=== PATIENT | female | born 2000 | race Caucasian/White ===

== ENCOUNTER 2021-04-15 10:34 | Outpatient (CLI) | payer OTHER, SELFPAY ==
[2021-04-15] VITALS (8 sets, daily range): BP systolic 101–127; BP diastolic 45–61; PULSE 68–83; TEMP 36.9
--- NOTE | 2021-04-15 11:00 | OBADM ---
This patient, Betina Langford, admitted to the OB room OB Post 115 for observation. Patient/family oriented to hospital policies and general routines including ID bracelet, bed and alarms, visiting hours, pain management, procedures, bathroom and other care routines, personal items, smoking policy, room service/diet, and visiting hours. Patient/Family are encouraged to report perceived risks to care and to ask questions if they do not understand what they are told or what they should do.
[2021-04-15 13:03] LABS: Alanine Aminotransferase 49 U/L (4-35); Albumin Level 4.6 g/dL (3.5-5.1); Alkaline Phosphatase 83 U/L (38-126); Anion Gap 11 mmol/L (8-16); Aspartate Amino Transferase 38 U/L (14-36); Bilirubin,Total 1.2 mg/dL (0.2-1.3); Blood Urea Nitrogen 10 mg/dL (7-17); Calcium 9.4 mg/dL (8.4-10.2); Carbon Dioxide 20 mmol/L (22-30); Chloride 102 mmol/L (98-107); Estimated Glomerular Filt Rate > 60; Glucose 92 mg/dL (65-110); Potassium 3.6 mmol/L (3.4-5.0); Sodium 133 mmol/L (137-145)
[2021-04-15] MEDS: THIAMINE HCL INJ 100 MG, FOLIC ACID INJ 1 MG, MULTIVITAMINS-12 INJ VIAL 1 5 ML, MULTIVI... 150 MG IV CONT (13:19)
[2021-04-15] MEDS: PROMETHAZINE HCL 25 MG/ML AMPUL 12.5 MG IV PUSH (13:20)
--- NOTE | 2021-04-15 17:00 | PC.NURSE ---
Pt has tolerated popcicle and jello without any increase in nausea again.
--- NOTE | 2021-04-15 18:05 | PC.NURSE ---
Dr. Bang returned page and informed IV bag with multivitamins has infused and pt has tolerated popcicle, jello, and ice chips. Discharge orders received.
== END 2021-04-15 18:42 | disposition home or self-care (01) ==
LOC: ANHOBOP 10:42 → ANHOBPP 10:46
PROVIDERS: Visit Provider Student in an Organized Health Care Education/Training Program
DX: O21.9 Vomiting of pregnancy, unspecified (principal); Z3A.00 Weeks of gestation of pregnancy not specified
CPT/HCPCS: 36415; 80053; 99199; J2550; J3411; J3475; J7121

== ENCOUNTER 2021-04-20 17:55 | Observation (INO) | payer OTHER, SELFPAY ==
--- NOTE | ~2021-04-20 | XR_ITS ---
EXAMINATION: XR chest 1V portable DATE: 04/22/2021 08:49 INDICATION: COVID and . TECHNIQUE: frontal view of the chest was obtained. COMPARISON: Chest radiograph dated 04/20/2021 FINDINGS: The lungs remain clear with no focal airspace opacities, pulmonary edema, pleural effusion or pneumot horax. The cardiomediastinal silhouette is normal. Visualized bones and soft tissues are unremarkable . IMPRESSION: 1. Normal chest radiograph. Reviewed, dictated and finalized at location A. NSED PSYCHOLOGIST MANAGER IMPRESSION: 1. Normal chest radiograph.
--- NOTE | ~2021-04-20 | XR_ITS ---
XR chest 1V portable DATE: 04/20/2021 23:15 INDICATION: Chest pain, cough, fever. Covid exposure 2 days ago. TECHNIQUE: Portable AP chest on 04/20/2021 at 2310 hours COMPARISON: None FINDINGS: Normal heart size. No hilar or mediastinal enlargement. No pulmonary infiltrate or consolidation, pleural effusion or pulmonary vascular congestion or pneumo thorax. Included skeletal structures are unremarkable. IMPRESSION: No active cardiopulmonary disease Reviewed, dictated and finalized at location A. TANCE ABUSE SERVICES DIRECTOR
[2021-04-20 18:01] VITALS: BP 133/75; PULSE 128; RESP 20; TEMP 37.9; O2SAT 98
[2021-04-20 21:12] VITALS: BP 130/62; PULSE 78; RESP 24; TEMP 37.2; O2SAT 100
[2021-04-20 23:13] VITALS: RESP 18
[2021-04-20 23:18] VITALS: BP 98/62; PULSE 121; RESP 18; O2SAT 97
--- NOTE | 2021-04-20 23:21 | ED.FEVER ---
HPI - Fever General Chief Complaint: Fever Stated Complaint: Fever, Covid Exposure,10 weeks Time Seen by Provider: 04/20/21 22:43 Source: patient Mode of arrival: ambulatory Limitations: no limitations History of Present Illness HPI Narrative: Patient presents for evaluation of respiratory symptoms. She indicates she was informed today that her fiance's cousin, with whom she spent time with on [place], tested positive for COVID. Patient indicates she has had fever, chills, productive cough of yellow sputum with associated shortness of breath, chest heaviness, nausea, vomiting, abdominal cramping since yesterday. She feels dehydrated as she has not been able to keep anything down. She states she is currently , 10 weeks gestation. She has already had a confirmed IUP per U/S during this . . She denies any vaginal bleeding or discharge. She does not smoke. She has not received her COVID vaccinations. She is still taking adderall during her , down to 1 dose daily from 3 times daily[address] O[address]YN [address] Dr Bang. Related Data Home Medications Medication Instructions Recorded Confirmed PNV cmb#95-ferrous fumarate-FA 1 tablet PO DAILY 04/15/21 04/15/21 [] dextroamphetamine-amphetamine 10 mg PO TID PRN 04/15/21 04/15/21 ondansetron HCl 4 mg PO Q6-12H PRN 04/15/21 04/15/21 Allergies Allergy/AdvReac Type Severity Reaction Status Date / Time No Known Allergies Allergy Verified 04/15/21 15:38 Review of Systems Review of Systems: CONSTITUTIONAL: Reports fever and chills EYES: Denies visual changes, redness, or discharge. ENT: Reports sore throat. Denies otalgia and rhinorrhea CARDIOVASCULAR: Reports chest heaviness. Denies palpitations and edema RESPIRATORY: Reports productive cough of yellow sputum with associated SOB GASTROINTESTINAL: Reports abdominal cramping, nausea and vomiting GENITOURINARY: Denies dysuria or hematuria. SKIN: Denies rash or itching. MUSCULOSKELETAL: Reports generalized body aches NEUROLOGIC: Denies headache, numbness, dizziness, or weakness. PSYCHIATRIC: Denies anxiety or depression. [facility] Past Medical History Medical History (Updated 04/21/21 @ 02:15 by Gregorio Saul, [facility], ) No pertinent past medical history Surgical History Surgical History History of ankle surgery History of History of tonsillectomy Family History Family History (Updated 04/21/21 @ 02:15 by RENEE MckeonP, ) Father Heart disease Social History Social History (Updated 04/20/21 @ 23:27 by KRUNAL Mckeon, ) Smoking status: Never smoker Alcohol intake: never Substance use type: marijuana Other substance usage details: edibles Gender identity (if verbalized by the patient): Female Sexual Orientation (if Verbalized by the Patient): Straight or Heterosexual Spiritual care concerns: No Exam Narrative: GENERAL: Well-appearing, well-nourished, and in no acute distress. HEAD: Normocephalic, atraumatic. EYES: PERRLA and EOMI. ENT: Nares clear, no rhinorrhea or epistaxis. Mucous membranes moist. Oropharynx without tonsillar hypertrophy exudate or other lesions. Bilateral TMs pearly guerrier nonbulging NECK: Supple. No adenopathy or masses. No carotid bruits or JVD CHEST: Cough present on exam. Clear to auscultation. No respiratory distress. No wheezes rales or rhonchi HEART: Rate 125. No murmur heard. Normal peripheral pulses. ABDOMEN: Soft, nontender, nondistended, normal active bowel sounds. EXTREMITIES: Normal range of motion. No edema. SKIN: Warm, dry, no rash. NEURO: No focal deficits. Alert and oriented x3. PSYCH: Normal mood and affect. Course Course Emergency Course: This is a 21-year-old female who presented with complaints of fever and symptoms concerning for Covid after recent Covid exposures. She is initially tachycardic. EKG showed sinus tachycardia.
[2021-04-20 23:31] LABS: Basophils Percent Auto 0.4 % (0.2-1.2); Eosinophils Percent Auto 0.3 % (0-4.4); Hematocrit 35.2 % (37.0-47.0); Hemoglobin 12.2 g/dL (12.0-15.0); Immature Granulocyte Absolute 0.02 K/mm3 (0.00-0.031); Immature Granulocyte Percent A 0.3 % (0-0.5); Lymphocytes Absolute Auto 0.38 K/mm3 (0.9-3.2); Lymphocytes Percent Auto 5.3 % (18.3-44.2); Mean Corpuscular HGB Conc 34.7 g/dl (32-36); Mean Corpuscular Hemoglobin 28.9 pg (26-34); Mean Corpuscular Volume 83.4 fl (80-100); Mean Platelet Volume 12.1 fl (7.4-10.4); Monocytes Absolute Auto 0.7 K/mm3 (0.1-0.6); Monocytes Percent Auto 9.4 % (2.6-8.5); Neutrophils Percent Auto 84.3 % (45.5-73.1); Platelet Count Result 184 k/mm3 (150-375); Red Blood Count 4.22 M/mm3 (4.2-5.4); Red Cell Distribution Width 13.5 % (11.5-14.5); White Blood Count 7.1 K/mm3 (4.5-10.0)
[2021-04-20] MEDS: METOCLOPRAMIDE HCL INJ 10 MG/2 ML VIAL IV PUSH (23:32)
[2021-04-20] MEDS: LACTATED RINGERS 1,000 ML 999 ML IV CONT (23:32)
[2021-04-20] MEDS: diphenhydrAMINE HCl INJ 50 MG/ML VIAL 25 MG IV PUSH (23:33)
[2021-04-20 23:35] LABS: Add Urine Microscopic? YES; Appearance Urine Cloudy (Clear); Bilirubin Urine Negative (Negative); Color Urine Amber (Yellow); Glucose Urine UA Negative (Negative); Ketones Urine 2+ mg/dL (Negative); Leukocyte Esterase Ur Trace LEU/UL (Negative); Mucus Urine Heavy /lpf; Nitrate Urine Negative (Negative); Protein Urine 1+ mg/dL (Negative); Squamous Epithelial Cell Urine Many /hpf (Few); WBC Urine 16-20 /hpf
[2021-04-20 23:38] LABS: Blood Urine Negative (Negative); Specific Grav Ur 1.031 (1.001-1.035)
[2021-04-20 23:45] LABS: Alanine Aminotransferase 50 U/L (4-35); Albumin Level 4.3 g/dL (3.5-5.1); Alkaline Phosphatase 76 U/L (38-126); Anion Gap 9 mmol/L (8-16); Aspartate Amino Transferase 40 U/L (14-36); Bilirubin,Total 0.3 mg/dL (0.2-1.3); Blood Urea Nitrogen 7 mg/dL (7-17); Calcium 9.2 mg/dL (8.4-10.2); Carbon Dioxide 20 mmol/L (22-30); Chloride 104 mmol/L (98-107); Estimated CRCL calculation 187 ml/min; Estimated Glomerular Filt Rate > 60; Glucose 96 mg/dL (65-110); Lactic Acid Reflex 0.8 mmol/L (0.7-2.1); Potassium 3.5 mmol/L (3.4-5.0); Sodium 133 mmol/L (137-145)
[2021-04-20 23:56] LABS: Troponin I < 0.012 ng/mL (0.000-0.034)
[2021-04-21] VITALS (15 sets, daily range): BP systolic 107–137; BP diastolic 46–65; PULSE 83–118; RESP 16–18; TEMP 36.3–38.4; O2SAT 96–99; BMI 45.9
--- NOTE | 2021-04-21 00:25 | ECG_ITS ---
Measurements Intervals [place] Rate: 104 P: 37 CA: 157 QRS: 37 QRSD: 90 T: 17 QT: 329 QTc: 435 Interpretive Statements SINUS TACHYCARDIA MINIMAL Q WAVES- INFERIOR LEADS NONSPECIFIC T-WAVE ABNORMALITY- INFERIOR LEADS BASELINE ARTIFACT- I, III, AVL BORDERLINE ECG Electronically Signed On 04-21-2021 7:39:35 ASSOCIATE SOFTWARE ENGINEER by Quincy Blake D.O.
[2021-04-21] MEDS: LACTATED RINGERS 1,000 ML 999 ML IV CONT ×2 (00:28→01:15)
[2021-04-21] MEDS: ACETAMINOPHEN 325 MG TABLET 650 MG PO ×3 (02:20→12:33)
[2021-04-21 02:49] LABS: Troponin I < 0.012 ng/mL (0.000-0.034)
[2021-04-21 03:40] LABS: EDCOVIDSCREEN Positive (Negative)
[2021-04-21] MEDS: LACTATED RINGERS 1,000 ML 125 ML IV CONT ×3 (03:44→20:22)
--- NOTE | 2021-04-21 04:04 | PC.NURSE ---
Pt arrived from the ED per wheelchair to room 320 B with a Dx of Fever, covid exposure and 10 weeks . Pt in no acute distress. Encouraged to inform nurse if need assist with anything and plan of care discussed, verbalize understanding. See admission flowsheet for further assessment.
--- NOTE | 2021-04-21 08:55 | PM.IMHP ---
H&P: HPI History of Present Illness Date/Time: 04/21/21 08:55 Betina was admitted late last night due to respiratory symptoms, COVID positive viral infection with Tachycardia, while being 10 weeks gestation . She had fever, chills, productive cough of yellow sputum with associated shortness of breath, chest heaviness, nausea, vomiting, abdominal cramping at admission. She was dehydrated and not keeping anything down. She has already had a confirmed IUP per U/S during this . . She denies any vaginal or complications this far. She does not smoke, but did admit to smoking marijuana prior to due to GI upset, and switching to chews post - Dr. Bang informed. She has not received her COVID vaccinations. She is still taking Adderall during this , but is down to 1 dose daily from 3 times daily - currently held. Today, she continues to have tachycardic episodes with HR 100s, likely due to dehydration and COVID viral infection. Her Mag level was 1.6, treated with 2gm Mag IV, will recheck in the morning. Phos level WNL. Her cough seems to be more productive and often, than when she was admitted. Ordered CXR 2 view for morning, ordered Incentive spirometer use, sputum culture collected, scheduled Albuterol inhaler, and instructed her to sleep on her stomach or sides. Most of her s/s at home were GI related, N/V and unable to keep food down. Continue the Reglan, Zofran, and pepcid. She was not able to eat breakfast today due to feeling nauseated, but she was able to eat lunch today and keep it down. That is the only successful meal at this time. Her LFTs continued to climb, hoping that with the further IVFs at 125 ml/hr for rehydration, that her LFTs will be improved tomorrow. Will keep her overnight to further rehydrate with IVFs, monitor that she can tolerate meals and fluids by mouth well, monitor that her O2 requirements, monitor her elevated LFTs for improvement, and recheck a CXR in the morning. Spoke with OB-Fruit Grading Supervisor Dr. Bang, CXR in the morning is fine, as well as Albuterol. At this time, she is not requiring supplemental O2, but if that changes overnight or tomorrow morning, she should be started on high-dose prednisone and IV Remdesivir in efforts to fight off respiratory failure. Appreciate OB-Fruit Grading Supervisor Dr. Bang's recommendations today. Chief Complaint: Cough, Chest heaviness, Yellow Sputum, N/V and Abdominal Cramping Review of Systems Review of Systems: All systems reviewed & are unremarkable except as noted in HPI and below Constitutional: Constitutional: Reports as per HPI, Reports chills (noted at admission/ improved/resolved at this time), Denies excessive sweating, Denies headache(s), Denies increased appetite, Reports poor appetite, Denies snoring and Denies weight gain Eyes: Eyes: Reports as per HPI, Denies exophthalmos, Denies diplopia, Denies floaters and Denies loss of peripheral vision ENT: Reports as per HPI, Denies facial pain, Denies headache(s), Reports nasal congestion, Reports nasal discharge, Denies odynophagia, Denies tinnitus and Reports sinus pressure Cardiovascular: Cardiovascular: Denies chest pain, Reports rapid heart rate, Denies pedal edema, Denies leg edema, Denies lightheadedness and Denies dyspnea Respiratory: Respiratory: Reports as per HPI, Reports cough (productive at times.), Denies hemoptysis, Denies excessive phlegm production, Denies pain on inspiration, Denies pain with cough, Denies snoring and Denies wheezing Gastrointestinal: Gastrointestinal: Denies abdominal pain, Denies belching, Denies melena, Denies bloating, Denies hematochezia, Denies constipation, Denies GI cramping, Denies diarrhea, Reports nausea, Denies odynophagia, Denies vomiting and Denies hematemesis Genitourinary: Genitourinary: Reports as per HPI, Denies hematuria, Denies dysuria, Denies pelvic pain, Denies flank pain, Denies vaginal discharge and Reports other (darkened urine/tea colored urine) M
[2021-04-21] MEDS: METOCLOPRAMIDE HCL INJ 10 MG/2 ML VIAL IV PUSH ×2 (09:02→17:13)
[2021-04-21 09:20] LABS: CRP 2.6 mg/dL (<1.0); Lactate Dehydrogenase 334 U/L (313-618); Magnesium 1.6 mg/dL (1.6-2.3); Phosphorus 3.8 mg/dL (2.5-4.5)
[2021-04-21 09:36] LABS: SPREG INTERNAL CONTROL Positive; Serum Qual hCG Positive
--- NOTE | 2021-04-21 16:54 | WPDCN ---
Assessment and Plan Assessment and plan (1) Supervision of high risk , unspecified, unspecified trimester: Code(s): O09.90 - Supervision of high risk , unspecified, unspecified trimester Status: Acute (2) COVID-19 affecting in first trimester: Code(s): O98.511 - Other viral diseases complicating , first trimester; U07.1 - COVID-19 Status: Acute Assessment and Plan: pt presents with URI symptoms after COVID exposure pt tested positive for COVID in the ED pt c/o SOB, productive cough, vomiting, fever CRP and liver enzymes elevated chest X-ray was benign management of COVID-19 per hospitalist team, appreciate recommendations discussed COVID-19 in including increased risk of preeclampsia, VTE, stillbirth, maternal morbidity recommend daily 81mg aspirin starting at 13w GA No obstetric complaints currently HPI Data of Consult Date/Time: 04/21/21 16:54 Requesting Physician: Jennie aMyo NP Primary Care Provider: ASSOCIATE DIRECTOR QA PHYSICIAN Consult Narrative Narrative: Betina Langford is a 20 year old female at approximately 10w gestation who presents with fever, chills, SOB, productive cough after exposure to a COVID positive relative over [place]. Pt has not been vaccinated against COVID-19. Pt was found to have a positive COVID test in the ED. She is resting and breathing comfortably on room air. She still reports some mild SOB and cough. She denies any vaginal bleeding, leakage of fluid, pelvic pain. She did report some abdominal cramping after several bouts of emesis. Those symptoms have since resolved. Pt has no other obstetric complaints. Review of Systems Review of Systems: All systems reviewed & are unremarkable except as noted in HPI and below PMFSH Past Medical History Medical History (Updated 04/21/21 @ 17:00 by Temo Bang MD) No pertinent past medical history Surgical History Surgical History History of ankle surgery History of History of tonsillectomy Family History Family History Father Heart disease Social History Social History (Updated 04/20/21 @ 23:27 by KRUNAL Mckeon, ) Smoking status: Never smoker Second hand tobacco smoke exposure: No Alcohol intake: never Substance use type: other Other substance usage details: edibles Gender identity (if verbalized by the patient): Female Sexual Orientation (if Verbalized by the Patient): Straight or Heterosexual Spiritual care concerns: No Meds Home Medications and Allergies Home Medications Medication Instructions Recorded Confirmed Type PNV cmb#95-ferrous fumarate-FA 1 tablet PO DAILY 04/15/21 04/15/21 History [] dextroamphetamine-amphetamine 10 mg PO TID PRN 04/15/21 04/15/21 History ondansetron HCl 4 mg PO Q6-12H PRN 04/15/21 04/15/21 History Allergies Allergy/AdvReac Type Severity Reaction Status Date / Time No Known Allergies Allergy Verified 04/15/21 15:38 Vital Signs Vital Signs - 24 hr 04/20/21 18:01 04/20/21 21:12 04/20/21 23:13 Temperature 37.9 C H 37.2 C Pulse Rate 128 H 78 Respiratory Rate 20 24 H 18 Blood Pressure 133/75 130/62 Pulse Oximetry 98 100 04/20/21 23:18 04/21/21 00:28 04/21/21 01:16 Temperature Pulse Rate 121 H 104 H 101 H Respiratory Rate 18 18 16 Blood Pressure 98/62 L 108/58 L 131/61 Pulse Oximetry 97 96 99 04/21/21 02:22 04/21/21 03:19 04/21/21 03:35 Temperature 36.3 C L Pulse Rate 118 H 106 H 109 H Respiratory Rate 18 18 18 Blood Pressure 118/65 116/46 L 128/55 L Pulse Oximetry 98 96 98 04/21/21 04:00 04/21/21 05:36 04/21/21 08:00 Temperature 38.4 C H Pulse Rate 93 95 105 H Respiratory Rate 16 Blood Pressure 107/59 L Pulse Oximetry 99 04/21/21 09:02 04/21/21 10:00 04/21/21 12:00 Temperature 38.4 C H 37.
[2021-04-21] MEDS: MULTIVIT/MIN/PREN/FOL AC/IRON TABLET 1 TAB PO (19:46)
[2021-04-21 20:09] LABS: SARS-CoV-2 RNA PCR Positive (Negative)
[2021-04-21] MEDS: FAMOTIDINE 20 MG TABLET PO (20:15)
[2021-04-21] MEDS: MAGNESIUM SULF 2 GM/WATER 50ML 2 GM/50 ML BAG IVPB (20:30)
[2021-04-22] VITALS: BP 111/48; PULSE 81; RESP 16; TEMP 37.6; O2SAT 98
[2021-04-22 00:46] VITALS: TEMP 37.6
[2021-04-22] MEDS: ACETAMINOPHEN 325 MG TABLET 650 MG PO (00:46)
[2021-04-22 01:45] VITALS: TEMP 36.5
[2021-04-22] MEDS: ALBUTEROL SULFATE (*SP) INHALER 2 PUFF INHALATION (02:09)
[2021-04-22 04:00] VITALS: BP 100/40; PULSE 73; RESP 16; TEMP 36.3; O2SAT 99
[2021-04-22 06:00] VITALS: BP 100/40; PULSE 73; RESP 16; TEMP 36.3; O2SAT 99
[2021-04-22] MEDS: LACTATED RINGERS 1,000 ML 125 ML IV CONT (07:03)
[2021-04-22 07:33] LABS: Basophils Percent Auto 0.5 % (0.2-1.2); Eosinophils Percent Auto 1.1 % (0-4.4); Hematocrit 33.1 % (37.0-47.0); Hemoglobin 11.1 g/dL (12.0-15.0); Immature Granulocyte Absolute 0.02 K/mm3 (0.00-0.031); Immature Granulocyte Percent A 0.5 % (0-0.5); Lymphocytes Absolute Auto 0.89 K/mm3 (0.9-3.2); Lymphocytes Percent Auto 23.7 % (18.3-44.2); Mean Corpuscular HGB Conc 33.5 g/dl (32-36); Mean Corpuscular Hemoglobin 28.2 pg (26-34); Mean Platelet Volume 12.3 fl (7.4-10.4); Monocytes Absolute Auto 0.6 K/mm3 (0.1-0.6); Monocytes Percent Auto 14.6 % (2.6-8.5); Neutrophils Absolute Auto 2.2 K/mm3 (1.3-6.7); Neutrophils Percent Auto 59.6 % (45.5-73.1); Platelet Count Result 163 k/mm3 (150-375); Red Blood Count 3.94 M/mm3 (4.2-5.4); Red Cell Distribution Width 13.6 % (11.5-14.5); White Blood Count 3.8 K/mm3 (4.5-10.0)
[2021-04-22 07:37] LABS: Alanine Aminotransferase 51 U/L (4-35); Albumin Level 3.5 g/dL (3.5-5.1); Alkaline Phosphatase 65 U/L (38-126); Anion Gap 4 mmol/L (8-16); Aspartate Amino Transferase 38 U/L (14-36); Bilirubin,Total 0.2 mg/dL (0.2-1.3); Blood Urea Nitrogen 3 mg/dL (7-17); Calcium 8.4 mg/dL (8.4-10.2); Carbon Dioxide 20 mmol/L (22-30); Chloride 108 mmol/L (98-107); Estimated CRCL calculation 230 ml/min; Estimated Glomerular Filt Rate > 60; Glucose 86 mg/dL (65-110); Potassium 3.2 mmol/L (3.4-5.0); Sodium 132 mmol/L (137-145)
[2021-04-22 08:00] VITALS: BP 127/49; PULSE 84; RESP 16; TEMP 36.2; O2SAT 98
[2021-04-22 08:06] LABS: Magnesium 1.8 mg/dL (1.6-2.3)
[2021-04-22 08:17] LABS: Hemoglobin A1C 5.1 % (<5.7)
[2021-04-22] MEDS: POTASSIUM CHLORIDE 20 MEQ TABLET 40 MEQ PO (10:02)
[2021-04-22] MEDS: FAMOTIDINE 20 MG TABLET PO (10:02)
[2021-04-22] MEDS: MULTIVIT/MIN/PREN/FOL AC/IRON TABLET 1 TAB PO (10:02)
--- NOTE | 2021-04-22 10:12 | PM.DS ---
DS: Admitting Diagnosis Discharge Date 04/22/21 Admitting Diagnosis Fever, chills and cough DS: Discharge Diagnosis Discharge Diagnosis (1) COVID-19 affecting in first trimester: Code(s): O98.511 - Other viral diseases complicating , first trimester; U07.1 - COVID-19 Status: Acute (2) Tachycardia: Code(s): R00.0 - Tachycardia, unspecified Status: Acute (3) Elevated liver enzymes: Code(s): R74.8 - Abnormal levels of other serum enzymes Status: Acute (4) Obesity, Class III, BMI 40-49.9 (morbid obesity): Code(s): E66.01 - Morbid (severe) obesity due to excess calories Status: Acute (5) Nausea and vomiting in prior to 22 weeks gestation: Code(s): O21.9 - Vomiting of , unspecified Status: Acute (6) Suspected urinary tract infection: Code(s): R39.89 - Other symptoms and signs involving the genitourinary system Status: Acute DS: Summary Hospital Course Reason for hospitalization: 20yo female who is 10 weeks gestation here for fever and cough and found to have COVID. Please see H^&P for details Hospital Course: Patient presented emergency room. She had low-grade fever to 100.2. Pulse was 128. Blood pressure was normal. CBC was normal. On repeat white count will drop to 3800 felt to be related to COVID. Her test was positive. LFTs were mildly elevated again felt related to COVID. Troponin was negative x2. LDH was normal. CRP was 2.6. Urinalysis noted but had many squamous epithelial cells. Urine culture showed growth of mixed [place]ille. [place] her urinalysis and urine culture were contaminated. Group A strep throat swab was negative. EKG showed nonspecific findings. Chest x-ray was clear on admission. Chest x-ray was repeated on the day of discharge and remained clear. She remained on room air. She had some mild nausea. She was able to eat her breakfast this morning. She did test positive for COVID. has tested negative but he has had multiple exposures. Patient does have a but minimal dyspnea on exertion. No vaginal bleeding. Patient overall did well as a to be discharged home on 04/22/2021. Patient was given instructions on symptoms to watch for. Status at Discharge Cognitive/behavioral status at discharge: Stable Time Spent with Patient Time attestation: Total time spent providing and/or coordinating discharge services: 34 minutes Time spent: Greater than 30 minutes Exam Narrative: AF 97.1 127/49 84 16 98% ra Gen - NARD Chest - CTA bilaterally, nml RR CV - RRR S1/S2 Abd - Soft, obese, mild lower abdominal tenderness, no guarding. Ext - No pedal edema Neuro - Alert and oriented. Nonfocal exam. Psych - Nml mood and affect Skin - Warm and dry DS: Data Data Completed and Pending Labs on day of discharge: Labs from last 24 hours 04/22/21 04/22/21 04/22/21 07:43 06:53 06:53 WBC RBC Hgb Hct MCV MCH MCHC RDW Plt Count MPV Immature Gran % (Auto) Neut % (Auto) Lymph % (Auto) [place] % (Auto) Eos % (Auto) Baso % (Auto) Lymph # (Auto) [place] # (Auto) Eos # (Auto) Baso # (Auto) Abs Immat Gran (auto) Absolute Neuts (auto) Absolute Nucleated RBC Nucleated RBC % Sodium Potassium Chloride Carbon Dioxide Anion Gap BUN Creatinine Estim Creat Clear Calc Estimated GFR Glucose Hemoglobin A1c 5.1 Calcium Magnesium 1.8 Total Bilirubin AST ALT Alkaline Phosphatase Total Protein Albumin TSH (Reflex) 2.050 SARS-CoV-2 RNA (RT-PCR) 04/22/21 04/22/21 04/20/21 06:53 06:53 23:20 WBC 3.8 L RBC 3.94 L Hgb 11.1 L Hct 33.1 L MCV 84.0 MCH 28.2 MCHC 33.5 RDW 13.6 Plt Count 163 MPV 12.3 H Immature Gran % (Auto) 0.5 Neut % (Auto) 59.6 Lymph % (Auto) 23.7 [place] % (Auto) 14.6 H
--- NOTE | 2021-04-22 11:35 | PCRCNOTE ---
Window of time for administration has passed. See next scheduled administration.
== END 2021-04-22 11:38 | disposition home or self-care (01) ==
LOC: ANHED 04-21 02:16 → ANH3MEDSUR 04-21 08:33
PROVIDERS: Internal Medicine; Admitting Provider Internal Medicine; Emergency Provider Nurse Practitioner; Visit Provider Nurse Practitioner
DX: O98.511 Other viral diseases complicating pregnancy, first trimester (principal); U07.1 COVID-19; O99.411 Diseases of the circulatory system complicating pregnancy, first trimester; R00.0 Tachycardia, unspecified; R74.8 Abnormal levels of other serum enzymes; O21.9 Vomiting of pregnancy, unspecified; R39.89 Other symptoms and signs involving the genitourinary system; Z3A.10 10 weeks gestation of pregnancy
CPT/HCPCS: 36415; 71045; 80053; 81001; 83036; 83605; 83615; 83735; 84100; 84443; 84484; 84703; 85025; 86140; 87081; 87086; 87088; 87426; 87804; 87880; 93005; 96360; 96361; 96374; 96375; 96376; 99285; A9270; C9803; G0378; G0379; J1200; J2765; J3475; J7120; U0003; U0005

== ENCOUNTER 2021-08-27 17:30 | Observation (INO) | payer OTHER, SELFPAY ==
[2021-08-27] VITALS (17 sets, daily range): BP systolic 109–115; BP diastolic 53–71; PULSE 89–107; O2SAT 95–97; BMI 46.5
--- NOTE | 2021-08-27 17:47 | OBADM ---
This patient, Betina Langford, admitted to the OB room OB Post 116 for observation. Patient/family oriented to hospital policies and general routines including ID bracelet, bed and alarms, visiting hours, pain management, procedures, bathroom and other care routines, personal items, smoking policy, room service/diet, and visiting hours. Patient/Family are encouraged to report perceived risks to care and to ask questions if they do not understand what they are told or what they should do.
--- NOTE | 2021-08-27 17:50 | PC.NURSE ---
1730--Pt. states she has been having high BP and high HR since yesterday, hands and feet get swollen for a couple hours then it goes away and she feels like she is burning up from the inside when the swelling happens. She sates that she is having abdominal pain and back pain all over . EFM X2 applied, DTR's WNL, mild non-pitting edema noted to BLE. Report to Dr. Britton re: pt's complaints, v.s., and assessment. Orders for u/a and call with results.
[2021-08-27 18:05] LABS: Appearance Urine Clear (Clear); Bilirubin Urine Negative (Negative); Blood Urine Negative (Negative); Color Urine Yellow (Yellow); Glucose Urine UA Negative (Negative); Ketones Urine Negative (Negative); Leukocyte Esterase Ur Negative LEU/UL (Negative); Nitrate Urine Negative (Negative); Protein Urine Trace mg/dL (Negative); Specific Grav Ur 1.025 (1.001-1.035); Urobilinogen Urine 0.2 mg/dL (<2.0)
[2021-08-27 18:08] LABS: Mucus Urine Heavy /lpf; RBC Urine 0-2 /hpf (0-2); Squamous Epithelial Cell Urine Few /hpf (Few); WBC Urine 0-3 /hpf
[2021-08-27 18:14] LABS: Add Urine Microscopic? YES
--- NOTE | 2021-09-15 08:46 | PM.OBTRLD ---
OB - Triage/Final Diagnosis Visit Information Comments/Additional reasons for admission: I have assessed the risk for this patient, Betina Langford, and determined that she would benefit from observation care. Evaluation Laboratory results: Laboratory Tests 08/27/21 17:37 Urine Color Yellow Urine Appearance Clear Urine pH 7.0 Ur Specific [place] 1.025 Urine Protein Trace Urine Glucose (UA) Negative Urine Ketones Negative Ur Blood (Man) Negative Urine Nitrate Negative Urine Bilirubin Negative Urine Urobilinogen 0.2 Leukocyte Esterase Rfl Negative Urine RBC 0-2 Urine WBC 0-3 Ur Squamous Epith Cells Few Urine Mucus Heavy H Final Diagnosis (1) Intermittent palpitations: Code(s): R00.2 - Palpitations Status: Acute
== END 2021-08-27 17:32 | disposition home or self-care (01) ==
PROVIDERS: Admitting Provider Obstetrics & Gynecology; Visit Provider Student in an Organized Health Care Education/Training Program
DX: O26.893 Other specified pregnancy related conditions, third trimester (principal); R00.2 Palpitations; Z3A.28 28 weeks gestation of pregnancy
CPT/HCPCS: 81001; G0378; G0379

== ENCOUNTER 2021-10-12 18:52 | Observation (INO) | payer OTHER, SELFPAY ==
[2021-10-12] VITALS (21 sets, daily range): BP systolic 108; BP diastolic 51; PULSE 99–130; TEMP 36.7; O2SAT 96–100
[2021-10-12] MEDS: TERBUTALINE SULFATE 1 MG/ML VIAL 0.25 MG SUB-Q ×2 (20:00→20:30)
--- NOTE | 2021-10-13 06:37 | PM.OBTRLD ---
OB - Triage/Final Diagnosis Visit Information Date of evaluation: 10/12/21 Reason for evaluation: threatened labor Comments/Additional reasons for admission: I have assessed the risk for this patient, Betina Langford, and determined that she would benefit from observation care. Evaluation Vital signs: Vital Signs - 24 hr 10/12/21 19:16 10/12/21 19:59 10/12/21 20:04 Temperature 98.1 F Pulse Rate 105 H Blood Pressure 108/51 L Blood Pressure [Right Arm] Pulse Oximetry 99 96 Oxygen Delivery 10/12/21 20:09 10/12/21 20:14 10/12/21 20:19 Temperature Pulse Rate Blood Pressure Blood Pressure [Right Arm] Pulse Oximetry 100 99 99 Oxygen Delivery 10/12/21 20:24 10/12/21 20:29 10/12/21 20:34 Temperature Pulse Rate Blood Pressure Blood Pressure [Right Arm] Pulse Oximetry 99 100 100 Oxygen Delivery 10/12/21 20:39 10/12/21 20:44 10/12/21 20:49 Temperature Pulse Rate Blood Pressure Blood Pressure [Right Arm] Pulse Oximetry 99 100 99 Oxygen Delivery 10/12/21 20:54 10/12/21 20:59 10/12/21 21:04 Temperature Pulse Rate Blood Pressure Blood Pressure [Right Arm] Pulse Oximetry 99 100 99 Oxygen Delivery 10/12/21 21:09 10/12/21 21:14 10/12/21 21:19 Temperature Pulse Rate Blood Pressure Blood Pressure [Right Arm] Pulse Oximetry 99 100 98 Oxygen Delivery 10/12/21 21:24 10/12/21 21:29 10/12/21 21:34 Temperature Pulse Rate 99 Blood Pressure Blood Pressure [Right Arm] 108/51 L Pulse Oximetry 99 99 Oxygen Delivery 10/12/21 19:00 Temperature Pulse Rate Blood Pressure Blood Pressure [Right Arm] Pulse Oximetry Oxygen Delivery Room Air
== END 2021-10-12 21:42 | disposition home or self-care (01) ==
PROVIDERS: Admitting Provider Student in an Organized Health Care Education/Training Program; Visit Provider Student in an Organized Health Care Education/Training Program
DX: O47.03 False labor before 37 completed weeks of gestation, third trimester (principal); Z3A.34 34 weeks gestation of pregnancy
CPT/HCPCS: 59025; 84112; 96372; G0378; G0379; J3105

== ENCOUNTER 2021-10-13 13:56 | Outpatient (CLI) | payer OTHER, SELFPAY ==
[2021-10-13] VITALS (8 sets, daily range): BP systolic 107–122; BP diastolic 58–71; PULSE 95–116
[2021-10-13 14:53] LABS: Basophils Percent Auto 0.2 % (0.2-1.2); Eosinophils Absolute Auto 0.1 K/mm3 (0-0.3); Eosinophils Percent Auto 0.7 % (0-4.4); Hematocrit 32.8 % (37.0-47.0); Hemoglobin 10.5 g/dL (12.0-15.0); Immature Granulocyte Absolute 0.05 K/mm3 (0.00-0.031); Immature Granulocyte Percent A 0.5 % (0-0.5); Lymphocytes Absolute Auto 1.38 K/mm3 (0.9-3.2); Mean Corpuscular Hemoglobin 26.6 pg (26-34); Mean Corpuscular Volume 83.2 fl (80-100); Mean Platelet Volume 11.7 fl (7.4-10.4); Monocytes Absolute Auto 0.4 K/mm3 (0.1-0.6); Monocytes Percent Auto 3.6 % (2.6-8.5); Platelet Count Result 189 k/mm3 (150-375); Red Blood Count 3.94 M/mm3 (4.2-5.4); Red Cell Distribution Width 14.5 % (11.5-14.5); White Blood Count 9.8 K/mm3 (4.5-10.0)
[2021-10-13 14:57] LABS: Appearance Urine Slightly Cloudy (Clear); Bilirubin Urine 1+ (Negative); Blood Urine Negative (Negative); Color Urine Yellow (Yellow); Glucose Urine UA Negative (Negative); Ketones Urine 3+ mg/dL (Negative); Leukocyte Esterase Ur 1+ LEU/UL (NEGATIVE); Nitrate Urine Negative (Negative); Protein Urine 2+ mg/dL (Negative); Specific Grav Ur >= 1.030 (1.001-1.035); pH Urine 6.5 (5.0-9.0)
[2021-10-13 15:03] LABS: Add Urine Microscopic? YES; Bacteria Urine Trace /hpf; Mucus Urine Heavy /lpf; Squamous Epithelial Cell Urine Many /hpf (Few); WBC Urine 51-75 /hpf (0-3)
[2021-10-13 15:05] LABS: Alanine Aminotransferase 20 U/L (6-35); Albumin Level 3.4 g/dL (3.5-5.1); Alkaline Phosphatase 138 U/L (38-126); Anion Gap 7 mmol/L (8-16); Aspartate Amino Transferase 25 U/L (14-36); Bilirubin,Total 0.2 mg/dL (0.2-1.3); Blood Urea Nitrogen 6 mg/dL (7-17); Calcium 8.6 mg/dL (8.4-10.2); Carbon Dioxide 24 mmol/L (22-30); Chloride 107 mmol/L (98-107); Estimated Glomerular Filt Rate > 60; Glucose 145 mg/dL (65-110); Potassium 3.5 mmol/L (3.4-5.0); Sodium 138 mmol/L (137-145); Uric Acid 5.6 mg/dL (2.5-7.5)
[2021-10-13 15:39] LABS: Creatinine Urine 472.9 mg/dL; Total Protein Urine Random 42 mg/dL; Ur Ttl Prot Creatinine Ratio 0.09 mg/mg (0-0.20)
== END 2021-10-13 15:55 | disposition home or self-care (01) ==
LOC: ANHOBOP 14:00 → ANHOBPP 14:00
PROVIDERS: Visit Provider Student in an Organized Health Care Education/Training Program
DX: O13.3 Gestational [pregnancy-induced] hypertension without significant proteinuria, third trimester (principal); Z3A.34 34 weeks gestation of pregnancy
CPT/HCPCS: 36415; 59025; 80053; 81001; 82570; 84156; 84550; 85025; 87086; 99199

== ENCOUNTER 2021-10-20 10:42 | Outpatient (CLI) | payer OTHER, SELFPAY ==
[2021-10-20] VITALS (19 sets, daily range): BP systolic 85–110; BP diastolic 33–76; PULSE 95–118; RESP 18; O2SAT 98–100; BMI 48.8
--- NOTE | ~2021-10-20 | US_ITS ---
EXAMINATION: US OB BPP wo non-stress DATE: 10/20/2021 12:27 INDICATION: Hypertension, third trimester TECHNIQUE: Real-time pelvic ultrasound was performed. The interpreting radiologist was not present fo r the study. COMPARISON: None. FINDINGS: There is a single living fetus in vertex presentation. The placenta is anterior. heart rate is 159 beats per minute (bpm). The amniotic fluid index is 12 cm which is normal. Biophysical profile performed by the technologist: breathing (30 sec sustained breathing in 30 minutes): 2 out of 2 movement (3 gross body movements in 30 minutes): 2 out of 2 tone (one episode of [id number] limb movement): 2 out of 2 Amniotic fluid pocket (2 cm): 2 out of 2 Total score: 8 out of 8 IMPRESSION: 1. Single living fetus in vertex presentation. 2. Biophysical profile 8 out of 8. Reviewed, dictated and finalized at location A.
[2021-10-20 11:44] LABS: Basophils Percent Auto 0.3 % (0.2-1.2); Eosinophils Absolute Auto 0.1 K/mm3 (0-0.3); Eosinophils Percent Auto 1.5 % (0-4.4); Hematocrit 32.8 % (37.0-47.0); Hemoglobin 10.6 g/dL (12.0-15.0); Immature Granulocyte Absolute 0.04 K/mm3 (0.00-0.031); Immature Granulocyte Percent A 0.4 % (0-0.5); Lymphocytes Absolute Auto 1.49 K/mm3 (0.9-3.2); Lymphocytes Percent Auto 16.4 % (18.3-44.2); Mean Corpuscular HGB Conc 32.3 g/dl (32-36); Mean Corpuscular Hemoglobin 26.8 pg (26-34); Mean Corpuscular Volume 82.8 fl (80-100); Mean Platelet Volume 11.9 fl (7.4-10.4); Monocytes Absolute Auto 0.7 K/mm3 (0.1-0.6); Monocytes Percent Auto 7.9 % (2.6-8.5); Neutrophils Absolute Auto 6.7 K/mm3 (1.3-6.7); Neutrophils Percent Auto 73.5 % (45.5-73.1); Platelet Count Result 193 k/mm3 (150-375); Red Blood Count 3.96 M/mm3 (4.2-5.4); Red Cell Distribution Width 14.6 % (11.5-14.5); White Blood Count 9.1 K/mm3 (4.5-10.0)
[2021-10-20 11:59] LABS: Alanine Aminotransferase 15 U/L (6-35); Albumin Level 3.4 g/dL (3.5-5.1); Alkaline Phosphatase 145 U/L (38-126); Anion Gap 5 mmol/L (8-16); Aspartate Amino Transferase 19 U/L (14-36); Bilirubin,Total < 0.1 mg/dL (0.2-1.3); Blood Urea Nitrogen 7 mg/dL (7-17); Calcium 8.1 mg/dL (8.4-10.2); Carbon Dioxide 21 mmol/L (22-30); Chloride 111 mmol/L (98-107); Estimated CRCL calculation 196 ml/min; Estimated Glomerular Filt Rate > 60; Glucose 70 mg/dL (65-110); Sodium 137 mmol/L (137-145); Uric Acid 4.2 mg/dL (2.5-7.5)
[2021-10-20 12:16] LABS: Appearance Urine Clear (Clear); Bilirubin Urine Negative (Negative); Blood Urine Negative (Negative); Color Urine Yellow (Yellow); Creatinine Urine 163.4 mg/dL; Glucose Urine UA Negative (Negative); Ketones Urine Negative (Negative); Leukocyte Esterase Ur Negative LEU/UL (NEGATIVE); Nitrate Urine Negative (Negative); Protein Urine Negative (Negative); Specific Grav Ur 1.025 (1.001-1.035); Urobilinogen Urine 0.2 mg/dL (<2.0)
[2021-10-20 12:29] LABS: Total Protein Urine Random < 5 mg/dL; Ur Ttl Prot Creatinine Ratio < 0.03 mg/mg (0-0.20)
[2021-10-20 12:39] LABS: Add Urine Microscopic? NO
== END 2021-10-20 12:55 | disposition home or self-care (01) ==
LOC: ANHOBOP 10:47 → ANHOBPP 10:47
PROVIDERS: Visit Provider Student in an Organized Health Care Education/Training Program
DX: O13.9 Gestational [pregnancy-induced] hypertension without significant proteinuria, unspecified trimester (principal); Z3A.00 Weeks of gestation of pregnancy not specified
CPT/HCPCS: 36415; 59025; 76819; 80053; 81003; 82570; 84156; 84550; 85025; 87086; 99199

== ENCOUNTER 2021-11-11 06:30 | Inpatient (IN) | payer OTHER, SELFPAY ==
[2021-11-11] VITALS (134 sets, daily range): BP systolic 73–132; BP diastolic 33–106; PULSE 69–168; RESP 18; TEMP 36.3–37.3; O2SAT 86–100; BMI 49.7
[2021-11-11 07:17] LABS: Basophils Percent Auto 0.3 % (0.2-1.2); Eosinophils Absolute Auto 0.1 K/mm3 (0-0.3); Eosinophils Percent Auto 1.2 % (0-4.4); Hematocrit 34.1 % (37.0-47.0); Immature Granulocyte Absolute 0.08 K/mm3 (0.00-0.031); Immature Granulocyte Percent A 0.7 % (0-0.5); Lymphocytes Percent Auto 13.9 % (18.3-44.2); Mean Corpuscular HGB Conc 32.3 g/dl (32-36); Mean Corpuscular Hemoglobin 26.3 pg (26-34); Mean Corpuscular Volume 81.6 fl (80-100); Mean Platelet Volume 11.9 fl (7.4-10.4); Monocytes Absolute Auto 0.7 K/mm3 (0.1-0.6); Monocytes Percent Auto 6.1 % (2.6-8.5); Neutrophils Absolute Auto 8.4 K/mm3 (1.3-6.7); Neutrophils Percent Auto 77.8 % (45.5-73.1); Platelet Count Result 185 k/mm3 (150-375); Red Blood Count 4.18 M/mm3 (4.2-5.4); Red Cell Distribution Width 15.2 % (11.5-14.5); White Blood Count 10.8 K/mm3 (4.5-10.0)
[2021-11-11] MEDS: LACTATED RINGERS 1,000 ML 125 ML IV CONT ×3 (07:18→09:18)
--- NOTE | 2021-11-11 07:22 | LDADM ---
This patient, Betina Langford, was admitted to Labor/Delivery/Recovery 102 on 11/11/21 at 06:30. Plans for labor, pain management and were discussed with patient. Patient/family oriented to hospital policies and general routines including ID bracelet, bed and alarms, visiting hours, pain management, procedures, bathroom and other care routines, personal items, smoking policy, room service/diet and guest tray routines, security routines, and visiting hours. Patient/Family are encouraged to report perceived risks to care and to ask questions if they do not understand what they are told or what they should do. See OBIX for further documentation.
--- NOTE | 2021-11-11 07:46 | WPDANESEPPF ---
Anes - Initial Pre Proc Eval Date/Time: 11/11/21 07:46 Surgeon: Temo Bang MD Pre Op Diagnosis: labor Patient Data Age: 21 Gender: F Height: 1.63 m Weight: 131.5 kg Last Vital Signs Pulse 102 H 11/11/21 07:31 BP 123/63 11/11/21 07:31 O2 Del Method Room Air 11/11/21 07:22 Allergies Allergy/AdvReac Type Severity Reaction Status Date / Time No Known Allergies Allergy Verified 10/23/21 12:41 Home Medications Medication Instructions Recorded Confirmed Type vit no.95-ferrous 1 tablet PO DAILY 04/15/21 10/20/21 History fumarate 28 mg-folic acid 800 mcg tablet () Laboratory Tests 11/11/21 11/11/21 07:10 07:10 WBC 10.8 K/mm3 H K/mm3 (4.5-10.0) RBC 4.18 M/mm3 L M/mm3 (4.2-5.4) Hgb 11.0 g/dL L g/dL (12.0-15.0) Hct 34.1 % L % (37.0-47.0) MCV 81.6 fl fl (80-100) MCH 26.3 pg pg (26-34) MCHC 32.3 g/dl g/dl (32-36) RDW 15.2 % H % (11.5-14.5) Plt Count 185 k/mm3 k/mm3 (150-375) MPV 11.9 fl H fl (7.4-10.4) Immature Gran % (Auto) 0.7 % H % (0-0.5) Neut % (Auto) 77.8 % H % (45.5-73.1) Lymph % (Auto) 13.9 % L % (18.3-44.2) [place] % (Auto) 6.1 % % (2.6-8.5) Eos % (Auto) 1.2 % % (0-4.4) Baso % (Auto) 0.3 % % (0.2-1.2) Lymph # (Auto) 1.50 K/mm3 K/mm3 (0.9-3.2) [place] # (Auto) 0.7 K/mm3 H K/mm3 (0.1-0.6) Eos # (Auto) 0.1 K/mm3 K/mm3 (0-0.3) Baso # (Auto) 0.0 K/mm3 K/mm3 (0.0-0.1) Abs Immat Gran (auto) 0.08 K/mm3 H K/mm3 (0.00-0.031) Absolute Neuts (auto) 8.4 K/mm3 H K/mm3 (1.3-6.7) Absolute Nucleated RBC 0.0 K/mm3 K/mm3 (0.0-0.012) Nucleated RBC % 0.0 % % (0.0-0.2) RPR Pending Patient hx anesthesia problems: none Family hx anesthesia problems: none Results Review: All pre-operative results and documents have been reviewed as part of the pre-operative evaluation. [facility] Past Medical History Medical History No pertinent past medical history Surgical History Surgical History History of ankle surgery History of History of tonsillectomy Family History Family History (Updated 10/23/21 @ 12:45 by Jarred Ramirez RN) Father Heart disease Chronic obstructive pulmonary disease Congestive heart failure Hypertension Agent orange exposure Neuropathy Diabetes mellitus Mother Hypertension Grandparent Heart disease Heart attack Social History Social History Smoking status: Never smoker Second hand tobacco smoke exposure: No Alcohol intake: never Substance use: never Substance use type: other Other substance usage details: edibles Gender identity (if verbalized by the patient): Female Sexual Orientation (if Verbalized by the Patient): Straight or Heterosexual Spiritual care concerns: No Anes - Eval Final PreProcedure Day of Procedure 11/11/21 07:46 Patient weight: morbidly obese Heart: regular rate and rhythm Lungs: clear to auscultation and normal air movement Airway: Mallampati scale class II Neurological: alert and oriented Last oral intake: >/= 8 hours ASA classification: III Emergent: no Anesthetic plan: proceed Anesthesia type and monitoring: regional epidural Results Review: All pre-operative results and documents have been reviewed as part of the pre-operative evaluation. Informed Consent: The patient's anesthetic plan and its attendant risks and benefits were discussed with the patient/family/POA. Questions were solicited and answers provided to the satisfaction of the patient/family/POA.
--- NOTE | 2021-11-11 08:04 | PM.IMHP ---
H&P: HPI History of Present Illness Date/Time: 11/11/21 08:04 Chief Complaint: Intrauterine at term prior section Narrative: 21 yo at 38w6d who presents in labor. Pt reports regular contractions overnight. complicated by prior x1 for prolonged 2nd stage and failed operative delivery. Review of Systems Cardiovascular: Cardiovascular: Denies chest pain, Denies leg edema, Denies palpitations, Denies dyspnea and Denies dyspnea on exertion Respiratory: Respiratory: Denies cough, Denies dyspnea and Denies dyspnea on exertion Gastrointestinal: Gastrointestinal: Denies abdominal pain, Denies constipation, Denies diarrhea, Denies nausea and Denies vomiting Genitourinary: Genitourinary: Denies hematuria, Denies urinary frequency, Denies dysuria, Denies pelvic pain, Denies urinary incontinence and Denies vaginal discharge Neurologic: Reports system reviewed and no additional complaints, except as documented Psychiatric: Psychiatric: Reports no additional psychiatric complaints Endocrine: Endocrine: Denies palpitations PMFSH Past Medical History Medical History No pertinent past medical history Surgical History Surgical History History of ankle surgery History of History of tonsillectomy Family History Family History (Updated 10/23/21 @ 12:45 by Jarred Ramirez RN) Father Heart disease Chronic obstructive pulmonary disease Congestive heart failure Hypertension Agent orange exposure Neuropathy Diabetes mellitus Mother Hypertension Grandparent Heart disease Heart attack Social History Social History Smoking status: Never smoker Second hand tobacco smoke exposure: No Alcohol intake: never Substance use: never Substance use type: other Other substance usage details: edibles Gender identity (if verbalized by the patient): Female Sexual Orientation (if Verbalized by the Patient): Straight or Heterosexual Spiritual care concerns: No Meds Home Medications and Allergies Home Medications Medication Instructions Recorded Confirmed Type vit no.95-ferrous 1 tablet PO DAILY 04/15/21 10/20/21 History fumarate 28 mg-folic acid 800 mcg tablet () Allergies Allergy/AdvReac Type Severity Reaction Status Date / Time No Known Allergies Allergy Verified 10/23/21 12:41 Vital Signs Vital Signs - 24 hr 11/11/21 07:16 11/11/21 07:31 11/11/21 07:46 Temperature Pulse Rate 110 H 102 H 103 H Blood Pressure 118/66 123/63 131/68 Pulse Oximetry Oxygen Delivery 11/11/21 07:49 11/11/21 07:52 11/11/21 07:54 Temperature 36.4 C Pulse Rate 96 Blood Pressure 132/76 Pulse Oximetry 100 Oxygen Delivery 11/11/21 07:55 11/11/21 07:57 11/11/21 07:59 Temperature Pulse Rate 100 101 H 101 H Blood Pressure 118/73 120/58 L 124/64 Pulse Oximetry 100 Oxygen Delivery 11/11/21 08:01 11/11/21 08:02 11/11/21 07:22 Temperature Pulse Rate 103 H Blood Pressure 114/101 H Pulse Oximetry 100 Oxygen Delivery Room Air Exam Const: General: no acute distress Eyes: EOM: EOMs intact bilaterally Neck: Neck: supple Thyroid: thyroid normal Chest: Breast/axilla inspection: normal inspection of the breasts Breast/axilla palpation: normal palpation of the breasts, normal palpation of the axillae and no axillary lymphadenopathy Resp: Effort & Inspection: normal respiratory effort Auscultation: clear to auscultation bilaterally Cardio: Rate: regular rate Rhythm: regular rhythm GI: Inspection: non-distended and other (Gravid) GI Palp: Yes Soft to palpation, No Tenderness to palpation present (GI) and No Guarding due to palpation present (GI) Auscultation: normal bowel sounds : Speculum Exam - Vagina: No vagina
[2021-11-11] MEDS: ONDANSETRON INJ 4 MG/2 ML VIAL IV PUSH (09:18)
[2021-11-11 09:22] LABS: Rapid Plasma Reagin Non-Reactive (NonReactive)
[2021-11-11] MEDS: OXYTOCIN 30 UNITS/NS 500 ML 30 UNITS/500 ML BAG 125 UNITS IV CONT (10:29)
--- NOTE | 2021-11-11 15:18 | PM.OBPRVD ---
OB - Delivery Note Procedure Events: Previous Delivery Intrapartal Events: Decelerations and Non-Reassuring Status Delivery augmentation: Rupture of Membranes Delivery monitor: Internal FHT and Internal Uterine Route of delivery: Prior to decision for section, ACOG/SMFM labor guidelines were considered and discussed with the patient and staff. Decision made to proceed with the section.: Yes Quantitative Blood Loss (ml): 745 Baby Weeks of gestation at delivery: 39 Infant gender: Male Weight (pounds): 10 Weight (ounces): 4
--- NOTE | 2021-11-11 15:27 | W.PM.PROC2 ---
Procedure Note - Detailed Date of Procedure 11/11/21 Pre-op Diagnosis labor prior section x1 non-reassuring heart tones failed operative delivery Post-op Diagnosis Same Procedure Performed repeat low transverse section Surgeon Temo Bang MD Anesthesia Spinal and Epidural Indications prolonged heart rate deceleration failed forceps delivery prio x1 Description of Procedure The patient was taken to the operating room. A combined spinal epidural anesthesic was administered and found to be adequate at a t-10 level. The patient was placed in a supine position with a slight left lateral tilt. A jaimes catheter was placed with return of clear urine. A Bovie grounding pad was placed. Surgical prep was performed and surgical drapes were placed. A surgical time out was performed. A Pfannenstiel skin incision was then made with the scalpel and carried through to the underlying layer of fascia. The fascia was then incised in the midline and the incision was extended laterally with the Morales scissors. The superior aspect of the fascia was then grasped with the Shaquille clamps, elevated, and the underlying rectus muscles dissected off bluntly and sharply. Attention was then turned to the inferior aspect of this incision which, in a similar fashion, was grasped, tented up with the Shaquille clamps, and the rectus muscles dissected off both bluntly and sharply. The rectus muscles were then in the midline. The peritoneum was identified and entered bluntly. The peritoneal incision was then extended superiorly and inferiorly with good visualization of the bladder. The vesico-uterine serosa was identified and dissected to create a bladder flap. The bladder blade was reinserted. The uterus was inspected for rotation. A low-transverse uterine incision was made sharply with the scalpel and entry was made into the uterine cavity. An amniotomy was made and copious amounts of clear fluid were noted on return. The uterine incision was extended laterally bluntly. The bladder blade was removed and the fetus was delivered atraumatically. The nose and mouth were suctioned with a bulb syringe. The umbilical cord was clamped twice and cut. The was handed off to the waiting staff. At the time of the delivery, the had good color, tone and grimace. The cried with minimal stimulation. A second segment of umbilical cord was clamped and cut for cord blood gasses. Cord blood was collected for determination of the blood type and for direct Hernandez. The placenta was delivered spontaneously without difficulty. The placenta appeared grossly normal and complete. The uterus was exteriorized and cleared of all clots and debris. The uterine incision was repaired using 0-monocryl suture in a running fashion. The uterine closure was inspected for hemostasis. The posterior aspect of the uterus and the broad ligaments were inspected and the posterior cul-de-sac cleared of fluid and blood clots. The uterine closure was again inspected and found to be hemostatic. The uterus was returned to the abdominal cavity. The pericolic gutters were inspected and were cleared of all blood clots and debris. The uterine closure was then re inspected to ensure hemostasis as were all subfascial tissues. The peritoneum was closed using 3-0 vicryl in a running fashion. The fascia was reapproximated with 0-vicryl in a running fashion. The subcutaneous tissue was irrigated and hemostasis achieved with electrocautery. It was reapproximated with 3-0 vicryl in a running fashion. The skin was closed with 4-0 vicryl in a subcuticular fashion. A sterile dressing was applied to the wound. The patient tolerated the procedure well. Sponge, lap and needle counts were correct times three. The patient was taken to recovery in stable condition and without anticipated complications. Estimated Blood Loss 745 Drains No Packing No Pathology None sent Complications
--- NOTE | 2021-11-11 17:58 | ADMGEN ---
This patient, Betina Langford, was admitted to OB 2nd Floor Room 286-00. Patient/family oriented to hospital policies and general routines including ID bracelet, bed and alarms, visiting hours, pain management, procedures, bathroom and other care routines, personal items, smoking policy, room service/diet, and visiting hours. Information on how to activate the Rapid Response Team has been discussed. Patient/Family are encouraged to report perceived risks to care and to ask questions if they do not understand what they are told or what they should do.
[2021-11-11] MEDS: KETOROLAC 30 MG/ML VIAL (*BKC) IV PUSH (18:20)
[2021-11-11 19:00] LABS: Amphetamine Screen Urine Negative (Negative); Barbiturate Screen Urine Negative (Negative); Benzodiazepines Screen Urine Negative (Negative); Cannabinoid Screen Urine Negative (Negative); Cocaine Screen Urine Negative (Negative); Methadone Screen Urine Negative (Negative); Opiate Screen Urine Negative (Negative); Phencyclidine Screen Urine Negative (Negative)
[2021-11-11] MEDS: DEXTROSE 5%/0.45% SOD CHL 1,000 ML 125 ML IV CONT (21:50)
[2021-11-12] VITALS (8 sets, daily range): BP systolic 102–132; BP diastolic 49–83; PULSE 94–111; RESP 18; TEMP 36.2–37.1; O2SAT 97–98
[2021-11-12] MEDS: KETOROLAC 30 MG/ML VIAL (*BKC) IV PUSH (04:10)
[2021-11-12 05:30] LABS: Basophils Percent Auto 0.2 % (0.2-1.2); Eosinophils Absolute Auto 0.1 K/mm3 (0-0.3); Eosinophils Percent Auto 0.4 % (0-4.4); Hematocrit 26.2 % (37.0-47.0); Hemoglobin 8.6 g/dL (12.0-15.0); Immature Granulocyte Absolute 0.07 K/mm3 (0.00-0.031); Immature Granulocyte Percent A 0.5 % (0-0.5); Lymphocytes Absolute Auto 0.92 K/mm3 (0.9-3.2); Lymphocytes Percent Auto 6.6 % (18.3-44.2); Mean Corpuscular HGB Conc 32.8 g/dl (32-36); Mean Corpuscular Hemoglobin 26.7 pg (26-34); Mean Corpuscular Volume 81.4 fl (80-100); Monocytes Absolute Auto 0.8 K/mm3 (0.1-0.6); Monocytes Percent Auto 5.6 % (2.6-8.5); Neutrophils Absolute Auto 12.1 K/mm3 (1.3-6.7); Neutrophils Percent Auto 86.7 % (45.5-73.1); Platelet Count Result 154 k/mm3 (150-375); Red Blood Count 3.22 M/mm3 (4.2-5.4); Red Cell Distribution Width 15.3 % (11.5-14.5); White Blood Count 13.9 K/mm3 (4.5-10.0)
--- NOTE | 2021-11-12 08:11 | P.PNOB_ITS ---
OB - PN: Subj Subjective Date/time seen: 11/12/21 08:11 Interval history: Patient doing well this AM. she is ambulating out of bed. She is tolerating PO. She reports adequate pain control. Her bleeding is normal and she reports normal lochia. She denies fever, chills, N/V. She has not yet passed flatus. Patient comments: no complaints and pain well controlled; no flatus present OB - PN: Obj Data Labs CBC & Chem 7: 11/12/21 04:05 Labs: Laboratory Results - last 24 hr 11/11/21 11/11/21 11/12/21 07:10 18:35 04:05 WBC 13.9 H RBC 3.22 L Hgb 8.6 L Hct 26.2 L MCV 81.4 MCH 26.7 MCHC 32.8 RDW 15.3 H Plt Count 154 MPV 12.0 H Immature Gran % (Auto) 0.5 Neut % (Auto) 86.7 H Lymph % (Auto) 6.[address] [place] % (Auto) 5.6 Eos % (Auto) 0.4 Baso % (Auto) 0.2 Lymph # (Auto) 0.92 [place] # (Auto) 0.8 H Eos # (Auto) 0.1 Baso # (Auto) 0.0 Abs Immat Gran (auto) 0.07 H Absolute Neuts (auto) 12.1 H Absolute Nucleated RBC 0.0 Nucleated RBC % 0.0 Urine Opiates Screen Negative Urine Methadone Screen Negative Ur Barbiturates Screen Negative Ur Phencyclidine Scrn Negative Ur Amphetamine Screen Negative U Benzodiazepines Scrn Negative Urine Cocaine Screen Negative U Cannabinoids Screen Negative RPR Non-reactive OB - PN A/P Plan day: 1 Plan: routine care Comments: patient doing well this AM s/p jaimes tolerating diet H/H 8.10/18, continue iron supplementation continue routine PP care plan for infant circumcision today, risks, benefits, alternatives discussed. Time Spent With Patient Time: Total time spent is greater than 50% in coordination of care (as documented) at patient's floor/unit and/or counseling patient: Time with patient: less than 15 minutes Review of Systems Constitutional: Constitutional: Reports no additional constitutional complaints Cardiovascular: Cardiovascular: Reports no additional cardiovascular complaints Respiratory: Respiratory: Reports no additional respiratory complaints Gastrointestinal: Gastrointestinal: Reports no additional gastrointestinal complaints Genitourinary: Genitourinary: Reports no additional female genitourinary complaints Exam Const: General: comfortable and no acute distress Resp: Effort & Inspection: normal respiratory effort Auscultation: clear to auscultation bilaterally Cardio: Rate: regular rate GI: GI Palp: Yes Soft to palpation and Yes Tenderness to palpation present (GI) (appropriately tender around incision ) Auscultation: normal bowel sounds Other: fundus firm and below umbilicus Incision C/D/I Urinary Catheter: Urinary Catheter: urine clear Psych: Appearance: grossly normal Mental Status: mental status grossly normal Affect: normal affect
[2021-11-12] MEDS: LANOLIN (LANSINOH) 7.5 GM CREAM 1 APPLIC TOPICAL (08:35)
[2021-11-12] MEDS: POLYSACCHARIDE IRON COMPLEX 150 MG CAPSULE PO ×2 (08:35→17:24)
[2021-11-12] MEDS: DOCUSATE SODIUM 100 MG CAPSULE PO ×2 (08:35→17:24)
[2021-11-12] MEDS: MULTIVIT/MIN/PREN/FOL AC/IRON TABLET 1 TAB PO (08:35)
[2021-11-12] MEDS: IBUPROFEN 600 MG TABLET PO ×2 (10:30→17:24)
[2021-11-12] MEDS: SIMETHICONE 80 MG TAB.CHEW PO ×3 (10:30→22:59)
[2021-11-12] MEDS: HYDROcodone/acetaminophen (*CRX) 5-325 MG TABLET 1 TAB PO (10:30)
[2021-11-12] MEDS: HYDROcodone/acetaminophen (*CRX) 10-325 MG TABLET 1 TAB PO ×3 (14:25→21:24)
--- NOTE | 2021-11-12 16:39 | PC.NURSE ---
[id number] Introductions were made, then consulted with patient to assess needs related to . Mother led the conversation with her experience feeding her so far and her feeding plan for her infant. Encouraged understanding of the benefits of skin to skin (unwrapping infant and placing vertically on her chest), responsive feeding and how to watch for early feeding signs, frequency of feeding on demand about every 8-12 times in 24 hours (every 2-3 hours), milk production, duration of feeding, signs of adequate intake/output and how to record on the feeding sheet. Reviewed good handwashing when or touching the breast/nipples to prevent infection. Resources used to facilitate learning were used with the mom and baby guide. Mother voiced understanding of responsive feedings every 2 -3 hours since the start of the last , to call if infant does not latch or there is discomfort with . Reported to the primary RN.
--- NOTE | 2021-11-12 17:43 | WPDANLDPN2 ---
Anes-Prog Note L&D Date/Time: 11/12/21 17:43 Comfortable throughout: section Epidural/Spinal procedure site: clean & non-tender Neuro status: Neuro function grossly intact. Cardiovascular status: normal Respiratory status: normal Airway patency: baseline Mental status: baseline Vital Signs: Last Vital Signs Temp 36.8 C 11/12/21 11:54 Pulse 106 H 11/12/21 11:58 Resp 18 11/12/21 11:58 BP 132/63 11/12/21 11:54 Pulse Ox 98 11/12/21 11:58 O2 Del Method Room Air 11/12/21 11:58 Pain score (VAS): 0 I/O: Intake & Output 11/12/21 11/12/21 11/12/21 07:59 15:59 23:59 Intake Total 2050 600 Output Total 1150 Balance 900 600 Patient feedback: Patient satisfied with anesthetic care.
--- NOTE | 2021-11-12 17:44 | WPDANLDNPN2 ---
Anes-Prog Note L&D-Neuraxial Date/Time: 11/12/21 17:44 Neuraxial medications: intrathecal PF morphine Opiod-related complaints: none Patient feedback: Patient satisfied with post-operative pain management.
[2021-11-13] MEDS: IBUPROFEN 600 MG TABLET PO ×3 (02:08→12:33)
[2021-11-13] MEDS: SIMETHICONE 80 MG TAB.CHEW PO ×3 (02:08→12:33)
[2021-11-13] MEDS: HYDROcodone/acetaminophen (*CRX) 10-325 MG TABLET 1 TAB PO ×3 (02:08→12:33)
[2021-11-13] MEDS: MULTIVIT/MIN/PREN/FOL AC/IRON TABLET 1 TAB PO (07:35)
[2021-11-13] MEDS: POLYSACCHARIDE IRON COMPLEX 150 MG CAPSULE PO (07:35)
[2021-11-13] MEDS: DOCUSATE SODIUM 100 MG CAPSULE PO (07:36)
--- NOTE | 2021-11-13 07:49 | PM.OBDSVD ---
DS: Admitting Diagnosis Discharge Date 11/13/21 Admitting Diagnosis intrauterine at term prior section OB - DS: Summary Hospital Course Hospital Course: 21 yo at 39w who presented in labor. Labor progressed to complete dilation. FHT were noted to have prolonged bradycardia. Operative delivery was attempted without success. Pt underwent emergent repeat for non-reassuring FHT. OB Procedures : None OB Procedures Intrapartum: Forceps and OB Procedures: : None Peripartum Data Delivery Method: Section Procedures: Procedures Operation Date: 11/11/21 14:10 Actual Procedure Side Surgeon p Section Temo Bang MD complications: none Status at Discharge Functional status at discharge: independent ambulation Overall status at discharge: patient is progressing back to baseline Time Spent with Patient Time attestation: Total time spent providing and/or coordinating discharge services: Time spent: Less than 30 minutes Exam Const: General: comfortable and no acute distress Resp: Effort & Inspection: normal respiratory effort Auscultation: clear to auscultation bilaterally Cardio: Rate: regular rate GI: Inspection: non-distended GI Palp: Yes Soft to palpation, No Firmness to palpation present (GI), Yes Tenderness to palpation present (GI) (mild tenderness over incision ) and No Guarding due to palpation present (GI) Auscultation: normal bowel sounds Psych: Appearance: grossly normal Mental Status: mental status grossly normal Discharge Plan Discharge Discharging Clinician: Temo Bang Patient Disposition: Home, Self-Care Activity: as tolerated and pelvic rest Diet: regular Patient Instructions: Antibiotic Form, (DC) Stand Alone Forms: General Discharge Information Follow-up/Referrals: Temo Bang MD [Physician] - 6 Weeks Discharge Medications: New hydrocodone-acetaminophen 5-325 mg tablet 1 tablet PO Q6H PRN (Reason: pain) Qty: 30 0RF ibuprofen 600 mg Tablet 600 mg PO Q6H PRN (Reason: Cramping) Qty: 30 0RF Continued PNV cmb#95-ferrous fumarate-FA [] 28 mg iron- 800 mcg Tablet 1 tablet PO DAILY Date of admission: 11/11/21 06:30 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
[2021-11-13 07:50] VITALS: BP 115/70; PULSE 95; RESP 16; TEMP 36.6; O2SAT 99
[2021-11-13 12:09] VITALS: PULSE 95; RESP 16; O2SAT 99
[2021-11-16 11:28] VITALS: BP 132/75; PULSE 83; RESP 20; TEMP 36.9; O2SAT 98
== END 2021-11-13 14:15 | disposition home or self-care (01) | DRG 540 ==
LOC: ANHLDR 06:49 → ANHOB2 18:05
PROVIDERS: Admitting Provider Student in an Organized Health Care Education/Training Program; Visit Provider Student in an Organized Health Care Education/Training Program
PROC: 10D00Z1 Extraction of Products of Conception, Low, Open Approach (ICD-10-PCS; CPT 59514; principal; 2021-11-11 12:10)
DX: O34.211 Maternal care for low transverse scar from previous cesarean delivery (principal); Z37.0 Single live birth; Z3A.39 39 weeks gestation of pregnancy; O99.892 Other specified diseases and conditions complicating childbirth; Z87.59 Personal history of other complications of pregnancy, childbirth and the puerperium; P96.83 Meconium staining; O69.81X0 Labor and delivery complicated by cord around neck, without compression, not applicable or unspecified; O99.344 Other mental disorders complicating childbirth; F98.8 Other specified behavioral and emotional disorders with onset usually occurring in childhood and adolescence; O66.5 Attempted application of vacuum extractor and forceps
CPT/HCPCS: 36415; 80307; 85025; 86592; 86850; 86900; 86901; A9270; J1885; J2274; J2405; J2590; J2795; J7120

== ENCOUNTER 2022-11-13 13:29 | Emergency (ER) | payer BC, OTHER, SELFPAY ==
--- NOTE | ~2022-11-13 | XR_ITS ---
EXAMINATION: XR chest 2V 11/13/2022 14:04 INDICATION: Chest palpitations PROCEDURE: 2 view chest COMPARISON: 04/22/2021 FINDINGS: The lungs are clear. The cardiomediastinal silhouette is within normal limits. There are no pleural effusions. There is no pneumothorax suspected. IMPRESSION: 1: NO ACUTE CARDIOPULMONARY DISEASE. Reviewed, dictated and finalized at location A.
--- NOTE | 2022-11-13 13:30 | ECG_ITS ---
Measurements Intervals [place] Rate: 94 P: 42 ME: 136 QRS: 27 QRSD: 84 T: 20 QT: 366 QTc: 460 Interpretive Statements SINUS RHYTHM MINIMAL Q WAVES- INFERIOR LEADS BASELINE ARTIFACT- I, III, AVL, AVF BORDERLINE ECG COMPARED TO ECG 04/21/2021 00:25:20 SINUS RHYTHM NOW PRESENT Electronically Signed On 11-13-2022 21:52:40 CDT by Quincy Blake D.O.
[2022-11-13 13:31] VITALS: BP 144/85; PULSE 92; RESP 18; TEMP 36.6; O2SAT 100
[2022-11-13 13:46] VITALS: PULSE 92; RESP 21; O2SAT 100
[2022-11-13 13:53] LABS: Basophils Percent Auto 0.3 % (0.2-1.2); Eosinophils Absolute Auto 0.2 K/mm3 (0-0.3); Eosinophils Percent Auto 1.8 % (0-4.4); Hematocrit 38.3 % (37.0-47.0); Hemoglobin 12.6 g/dL (12.0-15.0); Immature Granulocyte Absolute 0.03 K/mm3 (0.00-0.031); Immature Granulocyte Percent A 0.3 % (0-0.5); Lymphocytes Absolute Auto 1.79 K/mm3 (0.9-3.2); Lymphocytes Percent Auto 18.4 % (18.3-44.2); Mean Corpuscular HGB Conc 32.9 g/dl (32-36); Mean Corpuscular Hemoglobin 27.9 pg (26-34); Mean Corpuscular Volume 84.7 fl (80-100); Mean Platelet Volume 11.1 fl (7.4-10.4); Monocytes Absolute Auto 0.6 K/mm3 (0.1-0.6); Monocytes Percent Auto 5.9 % (2.6-8.5); Neutrophils Absolute Auto 7.1 K/mm3 (1.3-6.7); Neutrophils Percent Auto 73.3 % (45.5-73.1); Platelet Count Result 235 k/mm3 (150-375); Red Blood Count 4.52 M/mm3 (4.2-5.4); Red Cell Distribution Width 13.7 % (11.5-14.5); White Blood Count 9.7 K/mm3 (4.5-10.0)
[2022-11-13 14:04] LABS: Prothrombin Time 13.5 Seconds (11.1-14.7)
[2022-11-13 14:05] LABS: Partial Thromboplastin Time 29.7 SECONDS (22.3-36.8)
[2022-11-13 14:06] VITALS: PULSE 92; RESP 29; O2SAT 98
[2022-11-13 14:06] LABS: Alanine Aminotransferase 25 U/L (6-35); Albumin Level 4.4 g/dL (3.5-5.1); Alkaline Phosphatase 70 U/L (38-126); Anion Gap 8 mmol/L (8-16); Aspartate Amino Transferase 28 U/L (14-36); Bilirubin,Total 0.4 mg/dL (0.2-1.3); Blood Urea Nitrogen 8 mg/dL (7-17); Carbon Dioxide 27 mmol/L (22-30); Chloride 102 mmol/L (98-107); Estimated CRCL calculation 162 ml/min; Estimated Glomerular Filt Rate > 60; Glucose 89 mg/dL (65-110); Lipase 56 U/L (23-300); Potassium 3.5 mmol/L (3.4-5.0); Sodium 137 mmol/L (137-145)
[2022-11-13 14:17] LABS: Troponin I < 0.012 ng/mL (0.000-0.034)
[2022-11-13 15:00] LABS: D Dimer 0.37 ug/mL (<0.48)
--- NOTE | 2022-11-13 15:24 | ED.ARRPALP ---
HPI - Arrhythmia/Palpitations General Chief Complaint: Arrhythmia/Palpitations Stated Complaint: palpitations and left shoulder pain Time Seen by Provider: 11/13/22 13:37 Source: patient Mode of arrival: ambulatory Limitations: no limitations History of Present Illness HPI narrative: 22-year-old female 8 weeks presents today with complaints of intermittent palpitations over the last week. Patient states they were worse last night. 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 States that it did not go down even after rest. She went home rested in bed heart rate in the 90s. She presents today with concerns due to family history of heart issues. Patient was unclear of what exact heart issues the family has but dad started with heart concerns in the 40s. Also states that most of her mother's family has of heart issues. During these episodes she does endorse some shortness of breath. Does have some chest aching to the left side at times. When asked about increased stressors at home patient denied at initial assessment. Related Data Home Medications Medication Instructions Recorded Confirmed duloxetine 60 mg capsule,delayed 60 mg PO DAILY 03/04/22 release Allergies Allergy/AdvReac Type Severity Reaction Status Date / Time No Known Allergies Allergy Verified 11/13/22 13:29 Review of Systems Review of Systems: All systems reviewed & are unremarkable except as noted in HPI and below ENT: Reports as per HPI Cardiovascular: Cardiovascular: Reports as per HPI Respiratory: Respiratory: Reports as per HPI Gastrointestinal: Gastrointestinal: Reports as per HPI Musculoskeletal: Musculoskeletal: Reports as per HPI Integumentary/Breasts: Skin/Breast: Reports as per HPI Neurologic: Reports as per HPI Psychiatric: Psychiatric: Reports as per HPI PMFSH Past Medical History Medical History (Updated 11/13/22 @ 15:37 by Faustina Jensen APRN) ADHD Anxiety Depression Suppression of menses Surgical History Surgical History History of ankle surgery History of History of tonsillectomy Family History Family History Father Heart disease Chronic obstructive pulmonary disease Congestive heart failure Hypertension Agent orange exposure Neuropathy Diabetes mellitus Mother Hypertension Grandparent Heart disease Heart attack Social History Social History (Reviewed 10/13/22 @ 10:28 by MARGARITA Stubbs Smoking status: Never smoker Second hand tobacco smoke exposure: No Alcohol intake: never Substance use: never Substance use type: other Other substance usage details: edibles Gender identity (if verbalized by the patient): Female Sexual Orientation (if Verbalized by the Patient): Straight or Heterosexual Spiritual care concerns: No Exam Const: General: cooperative, healthy appearing, comfortable, no acute distress and well developed Orientation/consciousness: patient oriented x3 HENMT: Head: normal to inspection Eyes: General: appearance normal, both eyes and all related structures Chest: Chest palpation & inspection: normal inspection of the chest and tenderness (Left chest and left side of sternum) Resp: Effort & Inspection: normal respiratory effort and able to speak in complete sentences Auscultation: clear to auscultation bilaterally Cardio: Rate: regular rate Rhythm: regular rhythm Heart sounds: S1 normal heart sound present and S2 normal heart sound present GI: GI Palp: Yes Soft to palpation Auscultation: normal bowel sounds Neuro: General: patient oriented x3 Course Course Emergency Course: Reviewed labs with patient. After reviewing labs and letting patient know work-up is negative at this time for any concerns of heart issues she did endorse increase
[2022-11-13 15:37] VITALS: BP 138/81; PULSE 86; RESP 18; O2SAT 97
== END 2022-11-13 15:41 | disposition home or self-care (01) ==
PROVIDERS: Emergency Medicine; Emergency Provider Nurse Practitioner Family; PCP Internal Medicine
DX: O26.891 Other specified pregnancy related conditions, first trimester (principal); R00.2 Palpitations; R06.02 Shortness of breath; O99.891 Other specified diseases and conditions complicating pregnancy; Z3A.08 8 weeks gestation of pregnancy
CPT/HCPCS: 36415; 71046; 80053; 83690; 84484; 85025; 85380; 85610; 85730; 93005; 99284

== ENCOUNTER 2022-12-17 13:01 | Outpatient (CLI) | payer BC, OTHER, SELFPAY ==
[2022-12-17 14:36] LABS: Basophils Percent Auto 0.4 % (0.2-1.2); Eosinophils Absolute Auto 0.2 K/mm3 (0-0.3); Eosinophils Percent Auto 2.7 % (0-4.4); Hemoglobin 11.9 g/dL (12.0-15.0); Immature Granulocyte Absolute 0.04 K/mm3 (0.00-0.031); Immature Granulocyte Percent A 0.5 % (0-0.5); Lymphocytes Absolute Auto 1.14 K/mm3 (0.9-3.2); Lymphocytes Percent Auto 15.2 % (18.3-44.2); Mean Corpuscular Hemoglobin 28.5 pg (26-34); Mean Corpuscular Volume 83.9 fl (80-100); Mean Platelet Volume 11.8 fl (7.4-10.4); Monocytes Absolute Auto 0.4 K/mm3 (0.1-0.6); Monocytes Percent Auto 5.3 % (2.6-8.5); Neutrophils Absolute Auto 5.7 K/mm3 (1.3-6.7); Neutrophils Percent Auto 75.9 % (45.5-73.1); Platelet Count Result 173 k/mm3 (150-375); Red Blood Count 4.17 M/mm3 (4.2-5.4); Red Cell Distribution Width 13.9 % (11.5-14.5); White Blood Count 7.5 K/mm3 (4.5-10.0)
[2022-12-17 14:53] LABS: Glucose 1 Hour PP 50gm Dose 164 mg/dL
[2022-12-17 15:35] LABS: HIV 1/2 Ab P24 Ag Result Negative (Negative)
[2022-12-17 15:40] LABS: Hepatitis B Surface Antigen Negative (Negative)
[2022-12-20 10:57] LABS: Rapid Plasma Reagin Non-Reactive (NonReactive)
[2022-12-21 12:02] LABS: Rubella IgG Antibody 5.4 IU/ML
== END 2022-12-17 13:02 | disposition home or self-care (01) ==
LOC: ANHLAB 13:04
PROVIDERS: PCP Internal Medicine; Visit Provider Student in an Organized Health Care Education/Training Program
DX: N94.89 Other specified conditions associated with female genital organs and menstrual cycle (principal)
CPT/HCPCS: 36415; 82947; 84702; 85025; 86592; 86644; 86703; 86747; 86762; 86787; 86850; 86900; 86901; 87086; 87088; 87340; G0432

== ENCOUNTER 2023-04-02 17:10 | Emergency (ER) | payer BC, OTHER, SELFPAY ==
[2023-04-02] VITALS (14 sets, daily range): BP systolic 101–142; BP diastolic 72–85; PULSE 107–128; RESP 15–25; TEMP 36.4; O2SAT 98–100
--- NOTE | ~2023-04-02 | CT_ITS ---
EXAMINATION: CTA chest PE protocol DATE: 04/02/2023 19:12 INDICATION: pe TECHNIQUE: Computed tomography angiography (CTA) of the chest was performed with 100 mL Omnipaque-350 intravenous contrast timed to evaluate the pulmonary arteries. Coronal maximum intensity projection 3D-reconstructions were created by the technologist. The dose-length product (DLP) was 1875.51 mGy-cm . Automated exposure control and iterative reconstruction technique were employed. COMPARISON: None. FINDINGS: Lung parenchyma and airways: Clear. Pleura: Unremarkable. Thoracic inlet, axillae and chest wall: Unremarkable. Thoracic aorta: Normal. Mediastinum: Normal. Heart and pericardium: Normal. Coronary artery calcifications: Absent. Upper abdomen: No significant finding. Bones: No acute osseous finding. Pulmonary arteries: Study quality: Limited by motion and quantum mottle. Limited evaluation of subseg mental arteries. No central or segmental pulmonary emboli detected. IMPRESSION: No CT evidence of acute segmental or central pulmonary embolus. Limited evaluation of subsegmental ar teries. No acute intrathoracic process detected. Reviewed, dictated and finalized at location K. STERED REPRESENTATIVE IMPRESSION: No CT evidence of acute segmental or central pulmonary embolus. Limited evaluat ion of subsegmental arteries. No acute intrathoracic process detected.
--- NOTE | 2023-04-02 17:20 | ED.SOB ---
HPI - SOB/Dyspnea General Chief Complaint: Shortness of Breath/Dyspnea Stated Complaint: asthma/ Time Seen by Provider: 04/02/23 17:19 History of Present Illness HPI Narrative: Patient is a 22-year-old female approximately 29 weeks here with shortness of breath. She states that she has been having a wheeze and shortness of breath that began 4 days ago. She notes that has been worsening and she went into an urgent care this morning who provided her with a breathing treatment. She states that the breathing treatment helped her for about 30 minutes and then her symptoms returned. They discharged her with albuterol inhaler which she has been using but usually only relieves her shortness of breath for about 20 minutes and it rapidly returns. No fever chills. No known sick contacts. She does note that she had some exercise-induced asthma when she was young but is never had a formal diagnosis of asthma. Related Data Allergies Allergy/AdvReac Type Severity Reaction Status Date / Time No Known Allergies Allergy Verified 03/12/23 00:26 Review of Systems Review of Systems: All systems reviewed & are unremarkable except as noted in HPI and below PMFSH Past Medical History Medical History (Updated 04/02/23 @ 20:38 by Leslie Lorenz MD) ADHD Anxiety Depression Suppression of menses Surgical History Surgical History History of ankle surgery History of History of tonsillectomy Family History Family History Father Heart disease Chronic obstructive pulmonary disease Congestive heart failure Hypertension Agent orange exposure Neuropathy Diabetes mellitus Mother Hypertension Grandparent Heart disease Heart attack Social History Social History Smoking status: Never smoker Second hand tobacco smoke exposure: No Alcohol intake: never Substance use: never Substance use type: other Other substance usage details: edibles Lack of Transportation: No Lack of Food: Never True Current Housing: I Have Housing Concerned About Future Housing: No Difficulty Paying Gas/Electric Bills: No Difficulty Paying for Meds: No Currently Unemployed: No Education: High School Diploma/GED Difficulty w/ Childcare or Family Care: No Living arrangements: with family Gender identity (if verbalized by the patient): Female Sexual Orientation (if Verbalized by the Patient): Straight or Heterosexual Spiritual care concerns: No Exam Narrative: GENERAL: Well-appearing, well-nourished, and in no acute distress. HEAD: Normocephalic, atraumatic. EYES: PERRLA and EOMI. ENT: Nares clear. Mucous membranes moist. NECK: Supple. CHEST: Tachypneic, diffuse wheeze bilaterally. 2-3 word sentences HEART: Tachycardic. Normal peripheral pulses. ABDOMEN: Soft, nontender, nondistended. EXTREMITIES: Normal range of motion. No edema, no calf tenderness. SKIN: Warm, dry, no rash. NEURO: No focal deficits. Alert and oriented x3. PSYCH: Normal mood and affect. Course Course Emergency Course: Chart review performed. Patient here with shortness of breath. She is reportedly 29 weeks . Was seen at urgent care earlier, given one treatment. Triage vitals show tachycardia, otherwise normal. She appears to have been seen last month for an upper respiratory syndrome. Patient seen evaluated, she is quite tachypneic with bilateral wheeze present. she appears to be in jest-kb-cnurkzdf respiratory distress. Will do continuous of utero for the next hour. I did discuss that given her she is at risk for PE. She does not have a formal diagnosis of asthma so I am suspicious that there could be an additional underlying cause. Will reevaluate. After nebulizer she does appear to be a bit more comfort
--- NOTE | 2023-04-02 17:26 | ECG_ITS ---
Measurements Intervals [place] Rate: 110 P: 48 RI: 111 QRS: 46 QRSD: 85 T: 19 QT: 338 QTc: 458 Interpretive Statements SINUS TACHYCARDIA WITH SHORT RI INTERVAL Electronically Signed On 04-03-2023 10:25:59 MACHINERY CLEANER by Elliot Fernández M.D.
[2023-04-02] MEDS: IPRATROPIUM BR 0.02% INH SOLN 0.5 MG/2.5 ML VIAL 1.5 MG INHALATION (17:32)
[2023-04-02] MEDS: ALBUTEROL SULFATE NEB 2.5 MG/3 ML INH 15 MG INHALATION (17:33)
[2023-04-02 18:06] LABS: Basophils Percent Auto 0.4 % (0.2-1.2); Eosinophils Absolute Auto 0.4 K/mm3 (0-0.3); Eosinophils Percent Auto 3.5 % (0-4.4); Hemoglobin 10.3 g/dL (12.0-15.0); Immature Granulocyte Absolute 0.04 K/mm3 (0.00-0.031); Immature Granulocyte Percent A 0.4 % (0-0.5); Lymphocytes Absolute Auto 1.55 K/mm3 (0.9-3.2); Lymphocytes Percent Auto 15.2 % (18.3-44.2); Mean Corpuscular HGB Conc 33.2 g/dl (32-36); Mean Corpuscular Hemoglobin 27.8 pg (26-34); Mean Corpuscular Volume 83.6 fl (80-100); Mean Platelet Volume 11.7 fl (7.4-10.4); Monocytes Absolute Auto 0.8 K/mm3 (0.1-0.6); Monocytes Percent Auto 7.7 % (2.6-8.5); Neutrophils Absolute Auto 7.4 K/mm3 (1.3-6.7); Neutrophils Percent Auto 72.8 % (45.5-73.1); Platelet Count Result 187 k/mm3 (150-375); Red Blood Count 3.71 M/mm3 (4.2-5.4); Red Cell Distribution Width 14.3 % (11.5-14.5); White Blood Count 10.2 K/mm3 (4.5-10.0)
[2023-04-02 18:12] LABS: Influenza A QL RT-PCR Negative (Negative); Influenza B QL RT-PCR Negative (Negative); RSV RNA, RT-PCR Negative (Negative); SARS-CoV-2 RNA PCR Negative (Negative)
[2023-04-02 18:17] LABS: Alanine Aminotransferase 20 U/L (6-35); Albumin Level 3.5 g/dL (3.5-5.1); Alkaline Phosphatase 116 U/L (38-126); Anion Gap 7 mmol/L (8-16); Aspartate Amino Transferase 25 U/L (14-36); Bilirubin,Total 0.4 mg/dL (0.2-1.3); Blood Urea Nitrogen 5 mg/dL (7-17); Calcium 8.3 mg/dL (8.4-10.2); Carbon Dioxide 21 mmol/L (22-30); Chloride 109 mmol/L (98-107); Estimated Glomerular Filt Rate > 60; Glucose 91 mg/dL (65-110); Potassium 3.6 mmol/L (3.4-5.0); Sodium 137 mmol/L (137-145)
[2023-04-02 18:29] LABS: NT Pro B Type Natriuretic Pept < 20 pg/mL (19.9-100); Troponin I < 0.012 ng/mL (0.000-0.034)
--- NOTE | 2023-04-02 19:12 | PC.NURSE ---
Report received from BRAD Jorge. Assumed care of patient at this time.
[2023-04-02] MEDS: SODIUM CHLORIDE 0.9% IV 1,000 ML 999 ML IV CONT (19:19)
[2023-04-02] MEDS: methylPREDNISolone SOD SUCC 125 MG VIAL IV PUSH (20:42)
== END 2023-04-02 20:57 | disposition left against medical advice (07) ==
PROVIDERS: Emergency Provider Student in an Organized Health Care Education/Training Program; PCP Internal Medicine
DX: O26.893 Other specified pregnancy related conditions, third trimester (principal); J40 Bronchitis, not specified as acute or chronic; R06.02 Shortness of breath; Z3A.29 29 weeks gestation of pregnancy; Z20.822 Contact with and (suspected) exposure to COVID-19
CPT/HCPCS: 36415; 71275; 80053; 83880; 84484; 85025; 87637; 93005; 94640; 96361; 96374; 99284; J2930; J7030; Q9967

== ENCOUNTER 2023-04-11 18:29 | Emergency (ER) | payer BC, OTHER, SELFPAY ==
[2023-04-11 18:42] VITALS: BP 137/80; PULSE 115; RESP 24; TEMP 36.6; O2SAT 99
== END 2023-04-12 | disposition left against medical advice (07) ==
LOC: ANHED 04-12 01:06
PROVIDERS: PCP Internal Medicine
DX: R06.02 Shortness of breath (principal); R05.9 Cough, unspecified
CPT/HCPCS: 99199

== ENCOUNTER 2023-04-30 10:47 | Outpatient (CLI) | payer BC, OTHER, SELFPAY ==
[2023-04-30 11:14] LABS: Hemoglobin 10.9 g/dL (12.0-15.0); Immature Platelet Fraction Pct 13.8 % (0.9-11.2); Mean Corpuscular HGB Conc 32.1 g/dl (32-36); Mean Corpuscular Hemoglobin 26.6 pg (26-34); Mean Corpuscular Volume 82.9 fl (80-100); Mean Platelet Volume 12.3 fl (7.4-10.4); Platelet Count Result 143 k/mm3 (150-375); Red Cell Distribution Width 14.6 % (11.5-14.5); White Blood Count 9.4 K/mm3 (4.5-10.0)
[2023-05-02 11:08] LABS: HIV 1 2 Ag Ab 4th Gen w Rflxs Nonreactive (Nonreactive)
[2023-05-09 18:18] LABS: Chenodeoxycholic Acid 1.5 umol/L (< OR = 3.9); Cholic Acid 1.6 umol/L (< OR = 2.8); Deoxycholic Acid <0.5 umol/L (< OR = 2.3); Total Bile Acids 3.1 umol/L (< OR = 8.3)
== END 2023-04-30 10:48 | disposition home or self-care (01) ==
LOC: ANHLAB 10:49
PROVIDERS: PCP Internal Medicine; Visit Provider Student in an Organized Health Care Education/Training Program
DX: O99.719 Diseases of the skin and subcutaneous tissue complicating pregnancy, unspecified trimester (principal); L29.9 Pruritus, unspecified
CPT/HCPCS: 36415; 82542; 85027; 85055; 87389

== ENCOUNTER 2023-05-02 19:14 | Observation (INO) | payer BC, OTHER, SELFPAY ==
[2023-05-02] VITALS (42 sets, daily range): BP systolic 102–122; BP diastolic 36–78; PULSE 108–193; TEMP 37; O2SAT 95–100
[2023-05-02 20:28] LABS: Glucose Point of Care 102 mg/dl (65-105)
[2023-05-02 21:06] LABS: Basophils Percent Auto 0.2 % (0.2-1.2); Eosinophils Absolute Auto 0.2 K/mm3 (0-0.3); Eosinophils Percent Auto 1.8 % (0-4.4); Hematocrit 33.3 % (37.0-47.0); Hemoglobin 10.7 g/dL (12.0-15.0); Immature Granulocyte Absolute 0.05 K/mm3 (0.00-0.031); Immature Granulocyte Percent A 0.5 % (0-0.5); Lymphocytes Absolute Auto 0.82 K/mm3 (0.9-3.2); Lymphocytes Percent Auto 8.6 % (18.3-44.2); Mean Corpuscular HGB Conc 32.1 g/dl (32-36); Mean Corpuscular Hemoglobin 26.6 pg (26-34); Mean Corpuscular Volume 82.8 fl (80-100); Mean Platelet Volume 11.5 fl (7.4-10.4); Monocytes Absolute Auto 0.5 K/mm3 (0.1-0.6); Monocytes Percent Auto 5.5 % (2.6-8.5); Neutrophils Absolute Auto 7.9 K/mm3 (1.3-6.7); Neutrophils Percent Auto 83.4 % (45.5-73.1); Platelet Count Result 188 k/mm3 (150-375); Red Blood Count 4.02 M/mm3 (4.2-5.4); Red Cell Distribution Width 14.6 % (11.5-14.5); White Blood Count 9.5 K/mm3 (4.5-10.0)
[2023-05-02] MEDS: LACTATED RINGERS 1,000 ML 999 ML IV CONT ×2 (21:08→22:12)
[2023-05-02 21:16] LABS: Alanine Aminotransferase 15 U/L (6-35); Albumin Level 3.4 g/dL (3.5-5.1); Alkaline Phosphatase 153 U/L (38-126); Anion Gap 9 mmol/L (8-16); Aspartate Amino Transferase 23 U/L (14-36); Bilirubin,Total 0.7 mg/dL (0.2-1.3); Blood Urea Nitrogen 3 mg/dL (7-17); Calcium 8.4 mg/dL (8.4-10.2); Carbon Dioxide 20 mmol/L (22-30); Chloride 105 mmol/L (98-107); Estimated Glomerular Filt Rate > 60; Glucose 93 mg/dL (65-110); Potassium 3.4 mmol/L (3.4-5.0); Sodium 134 mmol/L (137-145)
[2023-05-02 21:18] LABS: Bacteria Urine None Seen /hpf; Bilirubin Urine 2+ (Negative); Blood Urine Negative (Negative); Color Urine Dark Yellow (Yellow); Glucose Urine UA Negative (Negative); Ketones Urine 4+ mg/dL (Negative); Leukocyte Esterase Ur 1+ LEU/UL (Negative); Nitrate Urine Negative (Negative); Non Pathogenic Casts 0-2; Protein Urine 1+ mg/dL (Negative); RBC Urine 0-2 /hpf (0-2); Specific Grav Ur 1.031 (1.001-1.035); Squamous Epithelial Cell Urine Many /hpf (Few)
[2023-05-02 21:19] LABS: Appearance Urine Slightly Cloudy (Clear)
[2023-05-02 21:22] LABS: Add Urine Microscopic? YES
[2023-05-02] MEDS: ONDANSETRON INJ 4 MG/2 ML VIAL IV PUSH (21:40)
[2023-05-02] MEDS: TERBUTALINE SULFATE 1 MG/ML VIAL 0.25 MG SUB-Q (22:09)
[2023-05-02 23:28] LABS: Glucose Point of Care 139 mg/dl (65-105)
--- NOTE | 2023-05-03 09:42 | PM.OBTRLD ---
OB - Triage/Final Diagnosis Visit Information Comments/Additional reasons for admission: I have assessed the risk for this patient, Betina Langford, and determined that she would benefit from observation care. Evaluation Laboratory results: Laboratory Tests 05/02/23 05/02/23 05/02/23 19:41 20:26 21:01 WBC 9.5 RBC 4.02 L Hgb 10.7 L Hct 33.3 L MCV 82.8 MCH 26.6 MCHC 32.1 RDW 14.6 H Plt Count 188 MPV 11.5 H Immature Gran % (Auto) 0.5 Neut % (Auto) 83.4 H Lymph % (Auto) 8.6 L [place] % (Auto) 5.5 Eos % (Auto) 1.8 Baso % (Auto) 0.2 Lymph # (Auto) 0.82 L [place] # (Auto) 0.5 Eos # (Auto) 0.2 Baso # (Auto) 0.0 Abs Immat Gran (auto) 0.05 H Absolute Neuts (auto) 7.9 H Absolute Nucleated RBC 0.0 Nucleated RBC % 0.0 Sodium 134 L Potassium 3.4 Chloride 105 Carbon Dioxide 20 L Anion Gap 9 BUN 3 L Creatinine 0.50 L Estim Creat Clear Calc Not Reportable Estimated GFR > 60 Glucose 93 POC Capillary Glucose 102 Calcium 8.4 Total Bilirubin 0.7 AST 23 ALT 15 Alkaline Phosphatase 153 H Total Protein 7.0 Albumin 3.4 L Urine Color Dark yellow Urine Appearance Slightly cloudy Urine pH 6.0 Ur Specific [place] 1.031 Urine Protein 1+ H Urine Glucose (UA) Negative Urine Ketones 4+ H Ur Blood (Man) Negative Urine Nitrate Negative Urine Bilirubin 2+ H Urine Urobilinogen 1.0 Leukocyte Esterase Rfl 1+ H Urine RBC 0-2 Urine WBC 6-10 H Ur Squamous Epith Cells Many H Urine Bacteria None seen Urine Casts 0-2 05/02/23 23:18 WBC RBC Hgb Hct MCV MCH MCHC RDW Plt Count MPV Immature Gran % (Auto) Neut % (Auto) Lymph % (Auto) [place] % (Auto) Eos % (Auto) Baso % (Auto) Lymph # (Auto) [place] # (Auto) Eos # (Auto) Baso # (Auto) Abs Immat Gran (auto) Absolute Neuts (auto) Absolute Nucleated RBC Nucleated RBC % Sodium Potassium Chloride Carbon Dioxide Anion Gap BUN Creatinine Estim Creat Clear Calc Estimated GFR Glucose POC Capillary Glucose 139 H Calcium Total Bilirubin AST ALT Alkaline Phosphatase Total Protein Albumin Urine Color Urine Appearance Urine pH Ur Specific [place] Urine Protein Urine Glucose (UA) Urine Ketones Ur Blood (Man) Urine Nitrate Urine Bilirubin Urine Urobilinogen Leukocyte Esterase Rfl Urine RBC Urine WBC Ur Squamous Epith Cells Urine Bacteria Urine Casts Vital signs: Vital Signs - 24 hr 05/02/23 19:46 05/02/23 19:56 05/02/23 20:01 Temperature 98.6 F Pulse Rate 193 H 171 H Blood Pressure 102/78 110/54 L Pulse Oximetry Oxygen Delivery 05/02/23 20:09 05/02/23 20:14 05/02/23 20:16 Temperature Pulse Rate 122 H Blood Pressure 114/55 L Pulse Oximetry 99 98 Oxygen Delivery 05/02/23 20:19 05/02/23 20:24 05/02/23 20:29 Temperature Pulse Rate Blood Pressure Pulse Oximetry 98 97 98 Oxygen Delivery 05/02/23 20:31 05/02/23 20:34 05/02/23 20:39 Temperature Pulse Rate 118 H Blood Pressure 122/36 L Pulse Oximetry 98 97 Oxygen Delivery 05/02/23 20:44 05/02/23 20:49 05/02/23 20:54 Temperature Pulse Rate Blood Pressure Pulse Oximetry 96 99 98 Oxygen Delivery 05/02/23 20:59 05/02/23 21:10 05/02/23 21:15 Temperature Pulse Rate Blood Pressure Pulse Oximetry 98 98 98 Oxygen Delivery 05/02/23 21:20 05/02/23 21:25 05/02/23 21:30 Temperature Pulse Rate Blood Pressure Pulse Oximetry 98 98 99 Oxygen Delivery 05/02/23 21:35 05/02/23 21:40 05/02/23 21:45 Temperature Pulse Rate Blood Pressure Pulse Oximetry 98 97 97 Oxygen Delivery 05/02/23 21:50 05/02/23 21:55 05/02/23 22:00 Temperature Pulse Rate Blood Pressure Pulse Oximetry 98 99 97 Oxygen Delivery 05/02/23 22:05 05/02/23 22:10 05/02/23 22:1
== END 2023-05-02 23:56 | disposition home or self-care (01) ==
PROVIDERS: Admitting Provider Student in an Organized Health Care Education/Training Program; PCP Internal Medicine; Visit Provider Obstetrics & Gynecology
DX: O98.519 Other viral diseases complicating pregnancy, unspecified trimester (principal); B34.9 Viral infection, unspecified; O99.284 Endocrine, nutritional and metabolic diseases complicating childbirth; E86.0 Dehydration; Z3A.00 Weeks of gestation of pregnancy not specified
CPT/HCPCS: 36415; 80053; 81001; 82948; 85025; 87086; 87088; 96361; 96372; 96374; G0378; G0379; J2405; J3105; J7120

== ENCOUNTER 2023-05-29 08:15 | Outpatient (RCR) | payer BC, OTHER, SELFPAY ==
[2023-05-15 11:31] VITALS: BP 107/47; PULSE 104
[2023-05-22 11:35] VITALS: BP 103/59; PULSE 107
--- NOTE | ~2023-05-29 | US_ITS ---
US OB limited w BPP DATE: 05/15/2023 11:09 INDICATION: Large for gestational age TECHNIQUE: Real-time imaging and Doppler analysis COMPARISON: None FINDINGS: Live [place] intrauterine gestation, fetus in vertex presentation. heart rate of 14 4 bpm. Posterior placenta. Amniotic fluid index measures 22.4 cm. (5th percentile JAYNE: 7.9 cm; 95th percentile JAYNE: 24.9 cm). BIOPHYSICAL PROFILE reported by ceramics technician: breathin out of 2 movement: 2 out of 2 tone: 2 out of 2 Amniotic fluid pocket: 2 out of 2 Total score: 6 out of 8 IMPRESSION: Biophysical profile score: 6 out of 8 Reviewed, dictated and finalized at Location A. Reviewed, dictated and finalized at location A. CAL IMAGING TECHNOLOGIST
--- NOTE | ~2023-05-29 | US_ITS ---
EXAMINATION: US OB limited w BPP DATE: 05/29/2023 09:39 INDICATION: Gestational diabetes, third trimester TECHNIQUE: Real-time pelvic ultrasound was performed. The interpreting radiologist was not present fo r the study. COMPARISON: None. FINDINGS: There is a single living fetus in vertex presentation. The placenta is posterior. heart rate is 141 beats per minute (bpm). The amniotic fluid index is 18.2 cm which is normal (normal range: 7.5 c m to 24.4 cm). Biophysical profile performed by the technologist: breathing (30 sec sustained breathing in 30 minutes): 2 out of 2 movement (3 gross body movements in 30 minutes): 2 out of 2 tone (one episode of jzyaxay-irhnzutws-afpuknn limb movement): 2 out of 2 Amniotic fluid pocket (2 cm): 2 out of 2 Total score: 8 out of 8 IMPRESSION: 1. Single living fetus in vertex presentation. 2. Biophysical profile 8 out of 8. 3. Normal amniotic fluid index. Reviewed, dictated and finalized at location F. ING PLUG ASSEMBLER
--- NOTE | ~2023-05-29 | US_ITS ---
EXAMINATION: US OB limited w BPP DATE: 05/22/2023 13:39 INDICATION: Evaluate well-being TECHNIQUE: Real-time pelvic ultrasound was performed. The interpreting radiologist was not present fo r the study. COMPARISON: None. FINDINGS: There is a single living fetus in vertex presentation. The placenta is posterior. cardiac acti vity and movement are demonstrated. heart rate is 148 beats per minute (bpm). JAYNE is norm al measuring 23.2 cm. Biophysical profile performed by the technologist: breathing (30 sec sustained breathing in 30 minutes): 2 out of 2 movement (3 gross body movements in 30 minutes): 2 out of 2 tone (one episode of wwsfgsh-cpcoklvab-xyalhdx limb movement): 2 out of 2 Amniotic fluid pocket (2 cm): 2 out of 2 Total score: 8 out of 8 IMPRESSION: 1. Single living intrauterine in vertex presentation with heart rate of 148 bpm. 2. Normal placenta. 3. Biophysical profile 8 out of 8. Reviewed, dictated and finalized at location A. D SWALLOWER
[2023-05-29 09:46] VITALS: BP 114/64; PULSE 98
== END 2023-08-13 23:59 | disposition home or self-care (01) ==
LOC: ANHOBOP 08:15
PROVIDERS: PCP Internal Medicine; Visit Provider Student in an Organized Health Care Education/Training Program
DX: O36.63X0 Maternal care for excessive fetal growth, third trimester, not applicable or unspecified (principal); Z3A.35 35 weeks gestation of pregnancy
CPT/HCPCS: 59025; 76815; 76819

== ENCOUNTER 2023-05-29 19:24 | Inpatient (IN) | payer BC, OTHER, SELFPAY ==
[2023-05-29] VITALS (33 sets, daily range): BP systolic 104–143; BP diastolic 59–82; PULSE 77–102; RESP 15–20; TEMP 36.3; O2SAT 90–100; BMI 48.4; BMI 48.8
--- NOTE | 2023-05-29 21:24 | WPDANESEPPF ---
Anes - Initial Pre Proc Eval Procedure: repeat c section Date/Time: 05/29/23 21:24 Surgeon: Susan Pre Op Diagnosis: Leaking Patient Data Age: 22 Gender: F Height: Weight: Last Vital Signs Pulse 102 H 05/29/23 21:16 BP 104/69 05/29/23 21:16 Allergies Allergy/AdvReac Type Severity Reaction Status Date / Time No Known Allergies Allergy Verified 05/26/23 08:05 Home Medications Medication Instructions Recorded Confirmed Type triamcinolone acetonide 0.1 % 1 applic topical BID #30 grams 02/10/23 05/26/23 Rx topical ointment lzoruffxve-ljeamwivbburs-giomicwp 1 cap PO Q6H PRN pain #30 caps 03/07/23 05/26/23 Rx 50 mg-300 mg-40 mg capsule (Fioricet) fluticasone 250 mcg-salmeterol 50 1 inh inhalation BID #60 ea 04/12/23 05/26/23 Rx mcg/dose blistr powdr for inhalation (Advair Diskus) Patient hx anesthesia problems: none Family hx anesthesia problems: none Results Review: All pre-operative results and documents have been reviewed as part of the pre-operative evaluation. [facility] Past Medical History Medical History ADHD Anxiety Depression Obesity, Class III, BMI 40-49.9 (morbid obesity) Suppression of menses Surgical History Surgical History History of ankle surgery History of History of tonsillectomy Family History Family History Father Heart disease Chronic obstructive pulmonary disease Congestive heart failure Hypertension Agent orange exposure Neuropathy Diabetes mellitus Mother Hypertension Grandparent Heart disease Heart attack Social History Social History Smoking status: Never smoker Second hand tobacco smoke exposure: No Alcohol intake: never Substance use: never Substance use type: other Other substance usage details: edibles Lack of Transportation: No Lack of Food: Never True Current Housing: I Have Housing Concerned About Future Housing: No Difficulty Paying Gas/Electric Bills: No Difficulty Paying for Meds: No Currently Unemployed: No Education: High School Diploma/GED Difficulty w/ Childcare or Family Care: No Living arrangements: with family Gender identity (if verbalized by the patient): Female Sexual Orientation (if Verbalized by the Patient): Straight or Heterosexual Spiritual care concerns: No Anes - Eval Final PreProcedure Day of Procedure 05/29/23 21:24 Patient weight: morbidly obese Heart: regular rate and rhythm Lungs: clear to auscultation Airway: Mallampati scale class II Neurological: alert and oriented Last oral intake: >/= 8 hours ASA classification: III Emergent: yes Anesthetic plan: proceed Anesthesia type and monitoring: regional Results Review: All pre-operative results and documents have been reviewed as part of the pre-operative evaluation. Informed Consent: The patient's anesthetic plan and its attendant risks and benefits were discussed with the patient/family/POA. Questions were solicited and answers provided to the satisfaction of the patient/family/POA.
[2023-05-29] MEDS: LACTATED RINGERS 1,000 ML 999 ML IV CONT (21:30)
--- NOTE | 2023-05-29 21:41 | PM.IMHP ---
H&P: HPI History of Present Illness Date/Time: 05/29/23 21:41 Year old 3 para 2001 presents with question of rupture membranes, which that was noted, but she has changed from 1-2 cm to 4cm in the last two hours. is also but, with gestational diabetes which has been diet controlled. Otherwise no specific issues or abnormalities with her care. Chief Complaint: Review of Systems Review of Systems: All systems reviewed & are unremarkable except as noted in HPI and below PMFSH Past Medical History Medical History ADHD Anxiety Depression Obesity, Class III, BMI 40-49.9 (morbid obesity) Suppression of menses Surgical History Surgical History History of ankle surgery History of History of tonsillectomy Family History Family History Father Heart disease Chronic obstructive pulmonary disease Congestive heart failure Hypertension Agent orange exposure Neuropathy Diabetes mellitus Mother Hypertension Grandparent Heart disease Heart attack Social History Social History Smoking status: Never smoker Second hand tobacco smoke exposure: No Alcohol intake: never Substance use: never Substance use type: other Other substance usage details: edibles Lack of Transportation: No Lack of Food: Never True Current Housing: I Have Housing Concerned About Future Housing: No Difficulty Paying Gas/Electric Bills: No Difficulty Paying for Meds: No Currently Unemployed: No Education: High School Diploma/GED Difficulty w/ Childcare or Family Care: No Living arrangements: with family Gender identity (if verbalized by the patient): Female Sexual Orientation (if Verbalized by the Patient): Straight or Heterosexual Spiritual care concerns: No Meds Home Medications and Allergies Home Medications Medication Instructions Recorded Confirmed Type triamcinolone acetonide 0.1 % 1 applic topical BID #30 grams 02/10/23 05/26/23 Rx topical ointment xpxttykuec-boczrodeoifhk-fvjnratp 1 cap PO Q6H PRN pain #30 caps 03/07/23 05/26/23 Rx 50 mg-300 mg-40 mg capsule (Fioricet) fluticasone 250 mcg-salmeterol 50 1 inh inhalation BID #60 ea 04/12/23 05/26/23 Rx mcg/dose blistr powdr for inhalation (Advair Diskus) Allergies Allergy/AdvReac Type Severity Reaction Status Date / Time No Known Allergies Allergy Verified 05/26/23 08:05 Vital Signs Vital Signs - 24 hr 05/29/23 21:16 Pulse Rate 102 H Blood Pressure 104/69 Exam Const: General: cooperative and healthy appearing Resp: Effort & Inspection: normal respiratory effort Auscultation: clear to auscultation bilaterally Cardio: Rate: regular rate Rhythm: regular rhythm GI: Inspection: normal to inspection Auscultation: normal bowel sounds : Bimanual exam- vagina & uterus: enlarged ( fundal height 40 heart tone 120 to 140) Assessment and Plan Assessment and plan (1) 37 weeks gestation of : Code(s): Z3A.37 - 37 weeks gestation of Status: Acute (2) History of section complicating : Code(s): O34.219 - Maternal care for unspecified type scar from previous delivery Status: Acute (3) Gestational diabetes mellitus: Code(s): O24.419 - Gestational diabetes mellitus in , unspecified control Status: Acute Plan proceed with repeat low-transverse section
[2023-05-29 21:44] LABS: Basophils Percent Auto 0.4 % (0.2-1.2); Eosinophils Absolute Auto 0.5 K/mm3 (0-0.3); Eosinophils Percent Auto 4.7 % (0-4.4); Hemoglobin 10.3 g/dL (12.0-15.0); Immature Granulocyte Absolute 0.05 K/mm3 (0.00-0.031); Immature Granulocyte Percent A 0.5 % (0-0.5); Lymphocytes Percent Auto 20.7 % (18.3-44.2); Mean Corpuscular HGB Conc 32.2 g/dl (32-36); Mean Corpuscular Volume 80.8 fl (80-100); Mean Platelet Volume 12.1 fl (7.4-10.4); Monocytes Absolute Auto 0.7 K/mm3 (0.1-0.6); Monocytes Percent Auto 6.8 % (2.6-8.5); Neutrophils Absolute Auto 6.5 K/mm3 (1.3-6.7); Neutrophils Percent Auto 66.9 % (45.5-73.1); Platelet Count Result 191 k/mm3 (150-375); Red Blood Count 3.96 M/mm3 (4.2-5.4); Red Cell Distribution Width 14.8 % (11.5-14.5); White Blood Count 9.7 K/mm3 (4.5-10.0)
--- NOTE | 2023-05-29 21:46 | WPDHPUPDATE1 ---
History and Physical Update Update Date/Time: 05/29/23 21:46 History and Physical has been reviewed, including an updated exam of the patient. There are NO changes in the patient's condition. Risks, benefits, and alternatives have been discussed and questions answered. Patient agrees to proceed with procedure.
[2023-05-29 21:49] LABS: Alanine Aminotransferase 14 U/L (6-35); Albumin Level 3.2 g/dL (3.5-5.1); Alkaline Phosphatase 193 U/L (38-126); Anion Gap 4 mmol/L (8-16); Aspartate Amino Transferase 22 U/L (14-36); Bilirubin,Total 0.4 mg/dL (0.2-1.3); Blood Urea Nitrogen 6 mg/dL (7-17); Calcium 9.2 mg/dL (8.4-10.2); Carbon Dioxide 22 mmol/L (22-30); Chloride 109 mmol/L (98-107); Estimated CRCL calculation 192 ml/min; Estimated Glomerular Filt Rate > 60; Glucose 90 mg/dL (65-110); Potassium 3.5 mmol/L (3.4-5.0); Sodium 135 mmol/L (137-145)
[2023-05-29] MEDS: ceFAZolin 3 GM/D5W 100 ML 100 ML IVPB (21:55)
[2023-05-29 22:41] LABS: Hepatitis B Surface Antigen Negative (Negative); Rubella IgG Antibody 3.9 IU/ML
--- NOTE | 2023-05-29 22:46 | W.PM.OBCSD ---
OB - Delivery Note Procedure Delivery date: 05/29/23 Pre-op diagnosis: Gestational Diabetes and Previous Delivery ( times two previous) Post-op Diagnosis: Same Delivery monitor: External FHT and External Uterine Prior to decision for section, ACOG/SM labor guidelines were considered and discussed with the patient and staff. Decision made to proceed with the section.: Yes Procedure Performed: Repeat Secondary branch: low cervical, transverse Surgeon: Chan Davis MD Anesthesia type: Spinal Description of Procedure/Findings: patient prepped and draped usual manner for this procedure. Pfannenstiel incision was made which was then carried down to the fascia which was extended the length the skin incision. Superiorly and inferiorly dissected away from the rectus muscles the peritoneum was readily entered. Moderate amount of scarring was encountered but readily taken down without difficulty. Bladder flap was developed and the uterus was scored with clear fluid noted. Vertex was delivered with nuchal cord x2 reduced. Baby was delivered cord clamped cut and the placenta was removed manually. Uterus was exteriorized, cleared of membranes and clots, and approximated using 0 Monocryl in a running interlocking manner with providing good hemostasis and closure. Uterus was returned to the abdomen gutters were cleared of serosanguineous fluid and clots and the fascia was then approximated using 0 Vicryl from the left angle to the midline and then from the right angle to midline with good approximation noted. Subcutaneous tissue was approximated using 0 plain suture and max were then used to approximate the skin edges. Patient was sent to recovery room in stable condition. Specimen: Yes ( Placenta) Estimated Blood Loss: 630 Drains: No Packing: No Pathology: Yes Complications: No immediate complications Condition: Stable Disposition: PACU [place] Baby Weeks of gestation at delivery: 37 gender: Female presentation: vertex Placenta delivery description: Manual Removal Cord Vessel Description: 3 Vessels, Nuchal Cord and Reduced AMG Delivery Billing Delivery Delivery: Delivery Charge
--- NOTE | 2023-05-29 23:36 | ADMGEN ---
This patient, Betina Langford, was admitted to Labor/Delivery/Recovery 102-00. Patient/family oriented to hospital policies and general routines including ID bracelet, bed and alarms, visiting hours, pain management, procedures, bathroom and other care routines, personal items, smoking policy, room service/diet, and visiting hours. Information on how to activate the Rapid Response Team has been discussed. Patient/Family are encouraged to report perceived risks to care and to ask questions if they do not understand what they are told or what they should do.
[2023-05-30] VITALS (45 sets, daily range): BP systolic 105–158; BP diastolic 53–91; PULSE 76–115; RESP 17–22; TEMP 36.2–37.2; O2SAT 95–100
--- NOTE | 2023-05-30 01:36 | PC.NURSE ---
Patient transferred to post room #282 per stretcher from labor and delivery. Oriented to unit, room, information board, rooming in, admission packet and security measures. Patient verbalizes understanding.
[2023-05-30] MEDS: OXYTOCIN 30 UNITS/NS 500 ML 30 UNITS/500 ML BAG 125 UNITS IV CONT (01:51)
[2023-05-30] MEDS: LORATADINE 10 MG TABLET PO (03:08)
[2023-05-30 05:03] LABS: Basophils Percent Auto 0.2 % (0.2-1.2); Eosinophils Absolute Auto 0.3 K/mm3 (0-0.3); Eosinophils Percent Auto 2.4 % (0-4.4); Hematocrit 29.4 % (37.0-47.0); Hemoglobin 9.2 g/dL (12.0-15.0); Immature Granulocyte Absolute 0.05 K/mm3 (0.00-0.031); Immature Granulocyte Percent A 0.4 % (0-0.5); Lymphocytes Absolute Auto 1.81 K/mm3 (0.9-3.2); Lymphocytes Percent Auto 14.8 % (18.3-44.2); Mean Corpuscular HGB Conc 31.3 g/dl (32-36); Mean Corpuscular Hemoglobin 25.8 pg (26-34); Mean Corpuscular Volume 82.4 fl (80-100); Monocytes Absolute Auto 0.6 K/mm3 (0.1-0.6); Monocytes Percent Auto 4.6 % (2.6-8.5); Neutrophils Absolute Auto 9.5 K/mm3 (1.3-6.7); Neutrophils Percent Auto 77.6 % (45.5-73.1); Platelet Count Result 157 k/mm3 (150-375); Red Blood Count 3.57 M/mm3 (4.2-5.4); Red Cell Distribution Width 14.9 % (11.5-14.5); White Blood Count 12.3 K/mm3 (4.5-10.0)
[2023-05-30] MEDS: DEXTROSE 5%/0.45% SOD CHL 1,000 ML 125 ML IV CONT (05:39)
[2023-05-30] MEDS: FLUTICASONE PROP 44 MCG (*SP) 10.6 GM 2 PUFF INHALATION (07:40)
--- NOTE | 2023-05-30 07:45 | WPDANLDPN2 ---
Anes-Prog Note L&D Date/Time: 05/30/23 07:45 Comfortable throughout: section Neuraxial method: spinal Epidural/Spinal procedure site: clean & non-tender Neuro status: Neuro function grossly intact. Cardiovascular status: normal Respiratory status: normal Airway patency: baseline Mental status: baseline Post-Op hydration status: normal Vital Signs: Last Vital Signs Temp 97.8 F 05/30/23 04:50 Pulse 105 H 05/30/23 04:50 Resp 18 05/30/23 04:50 BP 139/82 05/30/23 04:50 Pulse Ox 98 05/30/23 01:27 O2 Del Method Room Air 05/30/23 00:55 Pain score (VAS): 3 I/O: Intake & Output 05/29/23 05/29/23 05/30/23 15:59 23:59 07:59 Intake Total 1500 Output Total 850 Balance 650 Post-procedural complaints: none Patient feedback: Patient satisfied with anesthetic care.
--- NOTE | 2023-05-30 07:45 | WPDANLDNPN2 ---
Anes-Prog Note L&D-Neuraxial Date/Time: 05/30/23 07:45 Neuraxial medications: intrathecal PF morphine Opiod-related complaints: none Patient feedback: Patient satisfied with post-operative pain management.
[2023-05-30] MEDS: DOCUSATE SODIUM 100 MG CAPSULE PO ×2 (09:01→16:19)
[2023-05-30] MEDS: MULTIVIT/MIN/PREN/FOL AC/IRON TABLET 1 TAB PO (09:01)
[2023-05-30] MEDS: POLYSACCHARIDE IRON COMPLEX 150 MG CAPSULE PO ×2 (09:01→16:20)
[2023-05-30] MEDS: SIMETHICONE 80 MG TAB.CHEW PO ×3 (09:01→20:21)
[2023-05-30] MEDS: IBUPROFEN 600 MG TABLET PO ×2 (09:02→16:19)
[2023-05-30 13:42] LABS: Rapid Plasma Reagin Non-Reactive (NonReactive)
--- NOTE | 2023-05-30 15:47 | PC.NURSE ---
[phone] Introductions were made and shared her feeding plan with RN. Resources provided for inpatient with name written on the communication board. Mother voiced understanding of information and will call if there is a request for assistance.
[2023-05-30] MEDS: HYDROcodone/acetaminophen (*CRX) 5-325 MG TABLET 1 TAB PO ×2 (16:20→20:21)
[2023-05-30] MEDS: LIDOCAINE 5% PATCH 1 PATCH TRANSDERM (16:21)
[2023-05-30] MEDS: LANOLIN (LANSINOH) 7.5 GM CREAM 1 APPLIC TOPICAL (16:21)
[2023-05-31] MEDS: HYDROcodone/acetaminophen (*CRX) 5-325 MG TABLET 1 TAB PO ×6 (00:58→21:47)
[2023-05-31] MEDS: IBUPROFEN 600 MG TABLET PO ×3 (01:01→18:49)
--- NOTE | 2023-05-31 06:40 | PM.OBPNVD ---
OB - PN: Subj Subjective Date/time seen: 05/31/23 07:20 Narrative: POD#1 Betina reports doing well today. 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 Her pain is worse today; controlled when taking med though. She is tolerating regular diet, voiding, passing gas, and ambulating without issues. She denies any issues with her incision. She is breast and bottle feeding; daughter is on IV fluids OB - PN: Obj Data Labs 05/30/23 04:59 05/29/23 21:33 Labs: Laboratory Results - last 24 hr 05/29/23 05/30/23 21:33 04:59 WBC 9.7 12.3 H RBC 3.96 L 3.57 L Hgb 10.3 L 9.2 L Hct 32.0 L 29.4 L MCV 80.8 82.4 MCH 26.0 25.8 L MCHC 32.2 31.3 L RDW 14.8 H 14.9 H Plt Count 191 157 MPV 12.1 H 12.0 H Immature Gran % (Auto) 0.5 0.4 Neut % (Auto) 66.9 77.6 H Lymph % (Auto) 20.7 14.8 L [place] % (Auto) 6.8 4.6 Eos % (Auto) 4.7 H 2.4 Baso % (Auto) 0.4 0.2 Lymph # (Auto) 2.00 1.81 [place] # (Auto) 0.7 H 0.6 Eos # (Auto) 0.5 H 0.3 Baso # (Auto) 0.0 0.0 Abs Immat Gran (auto) 0.05 H 0.05 H Absolute Neuts (auto) 6.5 9.5 H Absolute Nucleated RBC 0.0 0.0 Nucleated RBC % 0.0 0.0 Sodium 135 L Potassium 3.5 Chloride 109 H Carbon Dioxide 22 Anion Gap 4 L BUN 6 L Creatinine 0.50 L Estim Creat Clear Calc 192 Estimated GFR > 60 Glucose 90 Calcium 9.2 Total Bilirubin 0.4 AST 22 ALT 14 Alkaline Phosphatase 193 H Total Protein 6.0 L Albumin 3.2 L RPR Non-reactive Hep Bs Antigen Negative Rubella IgG Antibody 3.9 L Blood Type O Positive Antibody Screen Negative OB - PN A/P Assessment and Plan (1) S/P repeat low transverse : Code(s): Z98.891 - History of uterine scar from previous surgery Status: Acute Plan day: 1 Plan: routine care Comments: - continue po pain meds - hydration/ambulation encouraged Time Spent With Patient Time: Total time spent is greater than 50% in coordination of care (as documented) at patient's floor/unit and/or counseling patient: Review of Systems Constitutional: Constitutional: Denies chills, Denies fever(s) and Denies headache(s) Eyes: Eyes: Denies change in vision ENT: Denies dizziness and Denies headache(s) Cardiovascular: Cardiovascular: Denies chest pain, Denies palpitations and Denies dyspnea Respiratory: Respiratory: Denies cough and Denies dyspnea Gastrointestinal: Gastrointestinal: Denies nausea and Denies vomiting Genitourinary: Comments: normal bleeding Neurologic: Denies dizziness and Denies headache(s) Endocrine: Endocrine: Denies palpitations Exam Const: General: cooperative, comfortable and no acute distress Nutritional Appearance: obese Orientation/consciousness: patient oriented x3 Resp: Effort & Inspection: normal respiratory effort Auscultation: clear to auscultation bilaterally Cardio: Rate: regular rate GI: Inspection: non-distended and incision (max) GI Palp: Yes abdominal tenderness (appropriate) and Yes Soft to palpation Auscultation: normal bowel sounds : Other: fundus firm Skin: General skin exam: normal color Neuro: General: patient oriented x3 Extrem: General: normal to inspection Psych: Appearance: grossly normal Affect: normal affect Attitude: cooperative
[2023-05-31 08:20] VITALS: BP 122/63; PULSE 94; RESP 18; TEMP 36.4; O2SAT 100
[2023-05-31] MEDS: FLUTICASONE PROP 44 MCG (*SP) 10.6 GM 2 PUFF INHALATION (08:37)
[2023-05-31] MEDS: POLYSACCHARIDE IRON COMPLEX 150 MG CAPSULE PO ×2 (08:38→18:49)
[2023-05-31] MEDS: SIMETHICONE 80 MG TAB.CHEW PO ×3 (08:38→18:48)
[2023-05-31] MEDS: DOCUSATE SODIUM 100 MG CAPSULE PO ×2 (08:38→18:49)
[2023-05-31] MEDS: MULTIVIT/MIN/PREN/FOL AC/IRON TABLET 1 TAB PO (08:38)
[2023-05-31 20:15] VITALS: BP 122/71; PULSE 104; RESP 20; TEMP 36.8
[2023-06-01] MEDS: IBUPROFEN 600 MG TABLET PO ×3 (01:34→19:08)
[2023-06-01] MEDS: HYDROcodone/acetaminophen (*CRX) 5-325 MG TABLET 1 TAB PO ×5 (01:34→19:08)
--- NOTE | 2023-06-01 07:12 | PM.OBPNVD ---
OB - PN: Subj Subjective Date/time seen: 06/01/23 07:12 Narrative: POD#3 Betina reports doing well today. 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 Her pain is controlled. She is tolerating regular diet, voiding, passing gas, and ambulating without issues. She denies any issues with her incision. She is bottle feeding. Her daughter is still on IV fluids; will not be discharged until tomorrow. OB - PN: Obj Data Labs 05/30/23 04:59 05/29/23 21:33 OB - PN A/P Assessment and Plan (1) S/P repeat low transverse : Code(s): Z98.891 - History of uterine scar from previous surgery Status: Acute Plan day: 3 Plan: routine care and discharge home (tomorrow) Comments: - Pelvic rest; take meds as prescribed - Incision care/no heavy lifting - ER return precautions: fever, n/v/abd pain, bleeding, HTN Time Spent With Patient Time: Total time spent is greater than 50% in coordination of care (as documented) at patient's floor/unit and/or counseling patient: Review of Systems Constitutional: Constitutional: Denies chills, Denies fever(s) and Denies headache(s) Eyes: Eyes: Denies change in vision ENT: Denies dizziness and Denies headache(s) Cardiovascular: Cardiovascular: Denies chest pain, Denies palpitations and Denies dyspnea Respiratory: Respiratory: Denies cough and Denies dyspnea Gastrointestinal: Gastrointestinal: Denies nausea and Denies vomiting Genitourinary: Comments: normal bleeding Neurologic: Denies dizziness and Denies headache(s) Endocrine: Endocrine: Denies palpitations Exam Const: General: cooperative, comfortable and no acute distress Orientation/consciousness: patient oriented x3 Resp: Effort & Inspection: normal respiratory effort Auscultation: clear to auscultation bilaterally Cardio: Rate: regular rate GI: Inspection: non-distended and incision (covered with clean dressing) GI Palp: Yes abdominal tenderness (appropriate) and Yes Soft to palpation Auscultation: normal bowel sounds : Other: fundus firm Skin: General skin exam: normal color Neuro: General: patient oriented x3 Extrem: General: normal to inspection Psych: Appearance: grossly normal Affect: normal affect Attitude: cooperative
[2023-06-01] MEDS: MULTIVIT/MIN/PREN/FOL AC/IRON TABLET 1 TAB PO (08:11)
[2023-06-01] MEDS: POLYSACCHARIDE IRON COMPLEX 150 MG CAPSULE PO ×2 (08:11→16:00)
[2023-06-01] MEDS: DOCUSATE SODIUM 100 MG CAPSULE PO ×2 (08:11→16:00)
[2023-06-01] MEDS: MEASLES,MUMPS,RUBELLA VACCINE 0.5 ML VIAL SUB-Q (08:12)
[2023-06-01 08:13] VITALS: BP 117/59; PULSE 75; TEMP 36.7; O2SAT 99
[2023-06-01] MEDS: SIMETHICONE 80 MG TAB.CHEW PO ×3 (08:18→16:23)
--- NOTE | 2023-06-01 09:45 | PC.NURSE ---
On 06/01/23, the student, Deni Hernandez, provided care and completed [facility] documentation on this patient. I have reviewed the student's documentation and agree with the findings.
[2023-06-01] MEDS: FLUTICASONE PROP 44 MCG (*SP) 10.6 GM 2 PUFF INHALATION (14:24)
--- NOTE | 2023-06-01 16:54 | PC.NURSE ---
[id number] Revisited mother to assess for /pumping needs. Mother shared that she will be bottle feeding, infant is still latching, and she has been pumping with a hand held manual pump. Shared protecting the milk supply, preventing and treatment of engorgement, plugged ducts, and mastitis. Mother declined assistance and has a plan.
[2023-06-01 20:48] VITALS: BP 113/70; PULSE 93; RESP 18; TEMP 36.9; O2SAT 98
--- NOTE | 2023-06-01 23:14 | PCRCNOTE ---
MDI not given at 2000 due to last administration being at 1400 that day. MDI is q12. Pt was not SOB and breath sounds clear. Pt will receive next dose per schedule at 0800 on 06/02/23.
[2023-06-02] MEDS: HYDROcodone/acetaminophen (*CRX) 5-325 MG TABLET 1 TAB PO ×3 (02:30→11:26)
[2023-06-02] MEDS: IBUPROFEN 600 MG TABLET PO ×2 (02:30→11:26)
[2023-06-02 07:00] VITALS: BP 135/78; PULSE 86; RESP 20; TEMP 36.7; O2SAT 100
[2023-06-02] MEDS: POLYSACCHARIDE IRON COMPLEX 150 MG CAPSULE PO (07:04)
[2023-06-02] MEDS: DOCUSATE SODIUM 100 MG CAPSULE PO (07:04)
[2023-06-02] MEDS: SIMETHICONE 80 MG TAB.CHEW PO ×2 (07:05→11:26)
[2023-06-02] MEDS: MULTIVIT/MIN/PREN/FOL AC/IRON TABLET 1 TAB PO (07:05)
--- NOTE | 2023-06-02 07:37 | PM.OBDSVD ---
DS: Admitting Diagnosis Discharge Date 06/02/2023 Admitting Diagnosis DS: Discharge Diagnosis Discharge Diagnosis (1) S/P repeat low transverse : Code(s): Z98.891 - History of uterine scar from previous surgery Status: Acute OB - DS: Summary OB Procedures : None OB Procedures Intrapartum: OB Procedures: : None Peripartum Data Procedures: Procedures Operation Date: 05/29/23 21:45 Actual Procedure Side Surgeon p Section Chan Davis MD Time Spent with Patient Time attestation: Total time spent providing and/or coordinating discharge services: DS: Data Data Completed and Pending Completed studies during hospitalization: Pending at discharge 05/29/23 22:22 Surgical [PTH] Routine Discharge Plan Discharge Discharging Clinician: Chan Davis Anticipated Discharge Date/Time: 06/02/23 10:00 Patient Disposition: Home, Self-Care Activity: may shower, may drive after 2 weeks and pelvic rest Diet: regular Patient Instructions: (DC) Stand Alone Forms: General Discharge Information Follow-up/Referrals: Chan Davis MD [Physician] - 1 Week (staple removal; 4wk f/u for PP visit) Discharge Medications: New acetaminophen 325 mg Tablet 650 mg PO Q6H PRN (Reason: Mild Pain (1-3)) Qty: 60 0RF docusate sodium 100 mg Capsule 100 mg PO BID Qty: 60 0RF ibuprofen 600 mg Tablet 600 mg PO Q6H PRN (Reason: Cramping) Qty: 40 0RF Auryxia 210 mg iron tablet 210 mg PO DAILY 90 Days Qty: 90 0RF Rx Instructions: administer with a meal hydrocodone-acetaminophen 5-325 mg Tablet 1 tablet PO Q3H PRN (Reason: Moderate Pain (4-6)) Qty: 24 0RF Continued cyvdzkgnoy-pxiscerrhmsqd-nusu [Fioricet] 50-300-40 mg capsule 1 cap PO Q6H PRN (Reason: pain) Qty: 30 0RF triamcinolone acetonide 0.1 % ointment 1 applic topical BID Qty: 30 0RF fluticasone propion-salmeterol [Advair Diskus] 250-50 mcg/dose blister with device 1 inh inhalation BID Qty: 60 1RF Date of admission: 05/29/23 19:24 Primary Care Provider: Daphnie,Sowmya Admitting Provider: Temo Bang Attending physician on admission: Temo Bang Condition: Stable
--- NOTE | 2023-06-02 07:41 | PM.OBDSVD ---
DS: Admitting Diagnosis Discharge Date 06/02/23 Admitting Diagnosis Rupture of membranes Previous x2 Gestational diabetes DS: Discharge Diagnosis Discharge Diagnosis (1) S/P repeat low transverse : Code(s): Z98.891 - History of uterine scar from previous surgery Status: Acute OB - DS: Summary OB Procedures : Ultrasound OB Procedures Intrapartum: low cervical, transverse OB Procedures: : Rubella lg Peripartum Data Delivery Method: Section Procedures: Procedures Operation Date: 05/29/23 21:45 Actual Procedure Side Surgeon p Section Chan Davis MD complications: none [place] 1: Gender: Female Disposition of : home Status at Discharge Functional status at discharge: independent ambulation Overall status at discharge: patient is back to baseline Time Spent with Patient Time attestation: Total time spent providing and/or coordinating discharge services: Time spent: Less than 30 minutes Exam Const: General: cooperative, comfortable, no acute distress and obese Orientation/consciousness: patient oriented x3 Resp: Effort & Inspection: normal respiratory effort Auscultation: clear to auscultation bilaterally Cardio: Rate: regular rate GI: Inspection: non-distended and incision (covered with clean dressing;max present) GI Palp: No abdominal tenderness and Yes Soft to palpation Auscultation: normal bowel sounds : Other: fundus firm Skin: General skin exam: normal color Neuro: General: patient oriented x3 Extrem: General: normal to inspection Psych: Appearance: grossly normal Affect: normal affect Attitude: cooperative DS: Data Data Completed and Pending Pending studies at discharge: Pending at discharge 05/29/23 22:22 Surgical [PTH] Routine Discharge Plan Discharge Discharging Clinician: Chan Davis Anticipated Discharge Date/Time: 06/02/23 10:00 Patient Disposition: Home, Self-Care Activity: may shower, may drive after 2 weeks and pelvic rest Diet: regular Patient Instructions: (DC) Stand Alone Forms: General Discharge Information Follow-up/Referrals: Chan Davis MD [Physician] - 1 Week (staple removal; 4wk f/u for PP visit) Discharge Medications: New acetaminophen 325 mg Tablet 650 mg PO Q6H PRN (Reason: Mild Pain (1-3)) Qty: 60 0RF docusate sodium 100 mg Capsule 100 mg PO BID Qty: 60 0RF ibuprofen 600 mg Tablet 600 mg PO Q6H PRN (Reason: Cramping) Qty: 40 0RF Auryxia 210 mg iron tablet 210 mg PO DAILY 90 Days Qty: 90 0RF Rx Instructions: administer with a meal hydrocodone-acetaminophen 5-325 mg Tablet 1 tablet PO Q3H PRN (Reason: Moderate Pain (4-6)) Qty: 24 0RF Continued qkhxwtxuqp-hlzufdhrfpthn-ucuf [Fioricet] 50-300-40 mg capsule 1 cap PO Q6H PRN (Reason: pain) Qty: 30 0RF triamcinolone acetonide 0.1 % ointment 1 applic topical BID Qty: 30 0RF fluticasone propion-salmeterol [Advair Diskus] 250-50 mcg/dose blister with device 1 inh inhalation BID Qty: 60 1RF Date of admission: 05/29/23 19:24 Primary Care Provider: DaphnieSowmya Admitting Provider: Temo Bang Attending physician on admission: Temo Bang Condition: Stable
[2023-06-02] MEDS: FLUTICASONE PROP 44 MCG (*SP) 10.6 GM 2 PUFF INHALATION (07:50)
[2023-06-03 11:32] VITALS: BP 118/66; PULSE 88; RESP 18; TEMP 36.8; O2SAT 98
== END 2023-06-02 13:52 | disposition home or self-care (01) | DRG 788 ==
LOC: ANHLDR 22:29 → ANHOB2 05-30 05:19 → ANHLDR 06-03 08:21 → ANHOB2 06-03 08:21
PROVIDERS: Admitting Provider Obstetrics & Gynecology; PCP Internal Medicine; Visit Provider Obstetrics & Gynecology
PROC: 10D00Z1 Extraction of Products of Conception, Low, Open Approach (ICD-10-PCS; CPT 59514; principal; 2023-05-29 21:45)
DX: O34.211 Maternal care for low transverse scar from previous cesarean delivery (principal); O24.420 Gestational diabetes mellitus in childbirth, diet controlled; Z37.0 Single live birth; Z3A.37 37 weeks gestation of pregnancy; O69.81X0 Labor and delivery complicated by cord around neck, without compression, not applicable or unspecified
CPT/HCPCS: 36415; 59025; 76815; 76819; 80053; 85025; 86592; 86762; 86850; 86900; 86901; 87340; 88307; 90710; 94640; A9270; J0690; J2274; J2371; J2405; J2590; J7120

== ENCOUNTER 2023-11-01 13:25 | Outpatient (CLI) | payer BC, OTHER, SELFPAY ==
[2023-11-01 14:42] LABS: Hematocrit 37.9 % (37.0-47.0); Hemoglobin 11.9 g/dL (12.0-15.0); Mean Corpuscular HGB Conc 31.4 g/dl (32-36); Mean Corpuscular Hemoglobin 26.5 pg (26-34); Mean Corpuscular Volume 84.4 fl (80-100); Platelet Count Result 270 k/mm3 (150-375); Red Blood Count 4.49 M/mm3 (4.2-5.4); Red Cell Distribution Width 14.3 % (11.5-14.5); White Blood Count 7.9 K/mm3 (4.5-10.0)
== END 2023-11-01 13:26 | disposition home or self-care (01) ==
LOC: ANHSURGERY 13:29
PROVIDERS: PCP Nurse Practitioner; Visit Provider Student in an Organized Health Care Education/Training Program
DX: Z01.818 Encounter for other preprocedural examination (principal); N39.3 Stress incontinence (female) (male); N93.9 Abnormal uterine and vaginal bleeding, unspecified
CPT/HCPCS: 36415; 85027; 86850; 86900; 86901; 87086; 87088

== ENCOUNTER 2023-11-07 00:04 | Day surgery (SDC) | payer BC, OTHER, SELFPAY ==
[2023-10-31 15:16] VITALS: BMI 44.2
--- NOTE | 2023-10-31 15:33 | PC.NURSE ---
Report to the Outpatient Waiting Room, entrance under the green pavilion located off [facility], at 0600 on 11/07/23. Planned Procedure Time: 0730. Time changes happen often and if your time is changed the preop area will call you the afternoon before. - You and your visitor will be asked to self-screen and do not enter if you have any COVID symptoms. - A mask is optional within the hospital at this time. Patients may have clear liquids (water, carbonated beverages, clear teas, apple juice) until 3 hours prior to surgery with a maximum of 20 ounces. - No food from midnight until time of surgery Take the following medications with a SIP of water the morning of surgery: __Duloxetine, Bupropion, and Gabapentin DO NOT STOP ANY OF YOUR OTHER PRESCRIPTION MEDICATIONS PRIOR TO SURGERY ?EXCEPT THE FOLLOWING Medications to discontinue per physician Stop vitamins 3 days prior to surgery. Check with Dr. Bang regarding Celebrex. Please no make-up, nail vietnamese, hairspray, perfume, deodorant, or body powder the day of surgery. No jewelry (including any body piercings) or valuables the day of surgery, leave them at home. Please take a shower or bath the night before, or the morning of, surgery with an antibacterial soap. Wear comfortable, loose fitting clothing. - Jewelry must be removed prior to entering the operating room. Rings and piercings that are not removed may be cut off. - The hospital will not accept responsibility for valuables. - Please leave all valuables, including medications, at home the day of surgery. If you are going home after surgery, a licensed food mobile driver must drive you home. - NO public transportation without another adult if you receive anesthesia. - We recommend that an adult stay with you for 24 hours following discharge. - We also recommend that you do not drive, make important decision, drink alcoholic beverages, or take any drugs that were not prescribed by your health care provider for at least 24 hours after your discharge time. Follow any additional instructions given to you from your surgeon. Check with Dr. Bang regarding U/S and Urine culture ordered 10/17/23. If you or anyone in your household have experienced Covid symptoms in the past week, please notify your surgeon or the nurse liaison at the phone number below for possible testing. Telephone instructions given to patient and asked if any additional questions and then verbalized understanding. Patient advised to call surgeon office or pre surgery nurse liaison [phone] if any additional questions.
[2023-11-07] VITALS (17 sets, daily range): BP systolic 101–132; BP diastolic 52–75; PULSE 87–113; RESP 12–18; TEMP 36.1–37; O2SAT 97–100; BMI 44.2
--- NOTE | 2023-11-07 07:01 | PM.IMHP ---
H&P: HPI History of Present Illness Date/Time: 11/07/23 07:01 Chief Complaint: Abnormal uterine bleeding pelvic pain stress urinary incontinence Narrative: 22-year-old female who presents for robotic hysterectomy with bilateral salpingectomy and mid-urethral sling. Patient has been dealing with AUB for some time. She has tried contraceptives in the past without improvement.s Patient continues to have bothersome pelvic pain cramping. She denies any vaginal discharge. Patient has had 3 children and does not desire anymore. Patient states her bleeding and cramping has affected her day-to-day life. patient also reports bothersome stress urinary incontinence. Patient states she has affected by urinary incontinence daily. Patient reports urinary leakage with cough, laugh, sneeze. Patient also reports occasional leakage when going up stairs. Patient is actively involved working with horses. Patient states she spends a lot of time riding horses. Her urinary incontinence is exacerbated by this. Pt is interested in surgical management of her incontinence Review of Systems Cardiovascular: Cardiovascular: Denies chest pain, Denies leg edema, Denies palpitations, Denies dyspnea and Denies dyspnea on exertion Respiratory: Respiratory: Denies cough, Denies dyspnea and Denies dyspnea on exertion Gastrointestinal: Gastrointestinal: Denies abdominal pain, Denies constipation, Denies diarrhea, Denies nausea and Denies vomiting Genitourinary: Genitourinary: Denies hematuria, Denies urinary frequency, Denies dysuria, Denies pelvic pain, Denies urinary incontinence and Denies vaginal discharge Neurologic: Reports system reviewed and no additional complaints, except as documented Psychiatric: Psychiatric: Reports no additional psychiatric complaints Endocrine: Endocrine: Denies palpitations PMFSH Past Medical History Medical History ADHD Anxiety Depression Encounter for initial insertion of intrauterine contraceptive device Obesity, Class III, BMI 40-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 (morbid obesity) Suppression of menses Surgical History Surgical History Delivery by section (05/29/23) rpt c/ s Delivery by section (11/11/21) rpt c/s History of ankle surgery History of (09/03/19) primary c/s History of tonsillectomy Family History Family History Father Heart disease Chronic obstructive pulmonary disease Congestive heart failure Hypertension Agent orange exposure Neuropathy Diabetes mellitus Mother Hypertension Grandparent Heart disease Heart attack Social History Social History Smoking status: Former smoker Tobacco type: cigarettes Second hand tobacco smoke exposure: No Additional smoking assessment comments: cigarettes occasional as a teenager Alcohol intake: current Alcohol use details: beer/mixed drinks-2-3x/year Substance use: current Substance use type: marijuana Other substance usage details: uses gummies and inhalation Last use: every other day Do You Feel Safe in your Home?: No Lack of Transportation: No Lack of Food: Never True Current Housing: I Have Housing Concerned About Future Housing: No Difficulty Paying Gas/Electric Bills: No Difficulty Paying for Meds: No Currently Unemployed: No Education: Associate Degree Difficulty w/ Childcare or Family Care: No Living arrangements: with family Gender identity (if verbalized by the patient): Female Sexual Orientation (if Verbalized by the Patient): Straight or Heterosexual Spiritual care concerns: No Meds Home Medications and Allergies Home Medications Medication Instructions Recorded Confirmed Type mmcskxylwe-vrnwnrgzhpqho-byscnbtn 1 cap PO Q6H PRN pain #30 caps
--- NOTE | 2023-11-07 07:04 | WPDHPUPDATE1 ---
History and Physical Update Update Date/Time: 11/07/23 07:04 History and Physical has been reviewed, including an updated exam of the patient. There are NO changes in the patient's condition. Risks, benefits, and alternatives have been discussed and questions answered. Patient agrees to proceed with procedure.
--- NOTE | 2023-11-07 07:12 | WPDANESEPPF ---
Anes - Initial Pre Proc Eval Procedure: Operation Date: 11/07/23 07:30 Proposed Procedures p Robotic Assisted Total Laparosopic Hysterectomy with Bilateral Salpingectomy - Temo Bang MD s Mid Urethral Sling - Temo Bang MD Date/Time: 11/07/23 07:12 Surgeon: Temo Bang MD Pre Op Diagnosis: Abnormal Uterine Bleeding, Stress Urinary Incont Patient Data Age: 23 Gender: F Height: 1.63 m Weight: 117.03 kg Allergies Allergy/AdvReac Type Severity Reaction Status Date / Time No Known Allergies Allergy Verified 10/31/23 15:07 Home Medications Medication Instructions Recorded Confirmed Type pkvgpptdxs-kjjkylzxqqeid-dcjuchhv 1 cap PO Q6H PRN pain #30 caps 03/07/23 10/31/23 Rx 50 mg-300 mg-40 mg capsule (Fioricet) duloxetine 60 mg capsule,delayed 60 mg PO DAILY #90 caps 09/09/23 10/31/23 Rx release bupropion HCl 150 mg tablet,12 hr 150 mg PO DAILY #90 tabs 10/06/23 10/31/23 Rx sustained-release (Wellbutrin SR) celecoxib 200 mg capsule 200 mg PO BID 10/31/23 10/31/23 History ergocalciferol (vitamin D2) 1,250 1,250 mcg PO WEEKLY 10/31/23 10/31/23 History mcg (50,000 unit) capsule fluticasone 250 mcg-salmeterol 50 See Rx Instructions .Route 10/31/23 10/31/23 History mcg/dose blistr powdr for .COMPLEX PRN Wheezing inhalation (Wixela Inhub) gabapentin 300 mg capsule 300 mg PO BID 10/31/23 10/31/23 History methocarbamol 750 mg tablet 750 mg PO BID 10/31/23 10/31/23 History triamcinolone acetonide 0.1 % 1 applic topical BID PRN Rash 10/31/23 10/31/23 History topical ointment Patient hx anesthesia problems: none Family hx anesthesia problems: none Results Review: All pre-operative results and documents have been reviewed as part of the pre-operative evaluation. [facility] Past Medical History Medical History ADHD Anxiety Depression Encounter for initial insertion of intrauterine contraceptive device Obesity, Class III, BMI 40-49.9 (morbid obesity) Suppression of menses Surgical History Surgical History Delivery by section (05/29/23) rpt c/ s Delivery by section (11/11/21) rpt c/s History of ankle surgery History of (09/03/19) primary c/s History of tonsillectomy Family History Family History Father Heart disease Chronic obstructive pulmonary disease Congestive heart failure Hypertension Agent orange exposure Neuropathy Diabetes mellitus Mother Hypertension Grandparent Heart disease Heart attack Social History Social History Smoking status: Former smoker Tobacco type: cigarettes Second hand tobacco smoke exposure: No Additional smoking assessment comments: cigarettes occasional as a teenager Alcohol intake: current Alcohol use details: beer/mixed drinks-2-3x/year Substance use: current Substance use type: marijuana Other substance usage details: uses gummies and inhalation Last use: every other day Do You Feel Safe in your Home?: No Lack of Transportation: No Lack of Food: Never True Current Housing: I Have Housing Concerned About Future Housing: No Difficulty Paying Gas/Electric Bills: No Difficulty Paying for Meds: No Currently Unemployed: No Education: Associate Degree Difficulty w/ Childcare or Family Care: No Living arrangements: with family Gender identity (if verbalized by the patient): Female Sexual Orientation (if Verbalized by the Patient): Straight or Heterosexual Spiritual care concerns: No Anes - Eval Final PreProcedure Day of Procedure 11/07/23 07:12 Patient weight: obese Heart: regular rate and rhythm Lungs: clear to auscultation Airway: Mallampati scale class II and special considerations
[2023-11-07] MEDS: LACTATED RINGERS 1,000 ML 30 ML IV CONT ×2 (07:16→10:09)
[2023-11-07] MEDS: ACETAMINOPHEN 500 MG TABLET 1000 MG PO (07:16)
[2023-11-07] MEDS: KETOROLAC 15 MG/ML VIAL (*BKC) IV PUSH (07:16)
[2023-11-07] MEDS: GENTAMICIN SULFATE INJ 405 MG in DEXTROSE 5% 100 ML 110 MG IVPB (07:33)
[2023-11-07] MEDS: ceFAZolin 2 GM/D5W 50 ML 2 GM/50 ML BAG IVPB (07:49)
[2023-11-07] MEDS: LIDO 1%/EPINEPHRINE 1:100,000 50 ML VIAL 30 ML INFILTRATE (08:30)
[2023-11-07] MEDS: LIDOCAINE HCL 1% LOCAL INJ 10 ML VIAL 20 ML INFILTRATE (08:31)
--- NOTE | 2023-11-07 09:35 | W.PM.PROC2 ---
Procedure Note - Detailed Date of Procedure 11/07/23 Pre-op Diagnosis Abnormal Uterine Bleeding pelvic pain Stress Urinary Incont Post-op Diagnosis Same Procedure Performed robotic assisted total laparoscopic hysterectomy and bilateral salpingectomy mid-urethral sling cystoscopy Surgeon Teom Bang MD Anesthesia General Indications AUB pelvic pain Findings Omental adhesions to the anterior abdominal wall from previous , anterior uterine serosa intimately adherent to the bladder and anterior abdominal wall. Normal appearing fallopian tubes and ovaries bilaterally Description of Procedure After the patient was appropriately consented she was taken to the operating room where she was transferred to the table in a dorsal supine position. General anesthesia was then induced with endotracheal intubation. The patient was transferred to a dorsal lithotomy position using adjustable yellow-fin stirrups. Her position was adjusted for appropriate support of her lower back and lower extremities. The patient was prepped and draped. A transurethral jaimes catheter was place. The cervix was sequentially dilated and a RADHA uterine manipulator placed in typical fashion about a 3cm FROY ring. Gloves were changed. After confirmation of a functioning orogastric tube, lidocaine was injected at Baker's point in the LUQ and a 5mm incision was made. A 5mm Optiview trocar was then inserted into the abdominal cavity under direct visualization and done so without complication. The abdomen was then insufflated with approximately 2-3L of CO2 establishing a pneumoperitoneum and the patient was placed in Trendelenburg position. Just above the umbilicus in the midline, a 8 mm incision made after injection of lidocaine and a 8 mm bladeless trocar advanced into the abdominal cavity under direct visualization without incident. We subsequently placed two robotic ports in a similar fashion, one in the left mid-quadrant and one in the right, 10cm lateral to the midline port. The robot was then docked. Pelvic survey was performed which showed omental adhesions to the anterior abdominal wall. These adhesions were taken week next the and uterine serosa was noted to be intimately adherent to the anterior abdominal wall bladder. These adhesions were taken down sharply Bovie cautery to restore normal anatomy. Attention was turned to the left pelvis. The left fallopian tube was removed by sequentially dividing the mesosalpinx towards the uterus sparing the ovary. The utero-ovarian ligament was desiccated and transected, as was the round ligament. The posterior peritoneal leaf was taken down to the FROY ring. The anterior leaf was developed as well as the start of the bladder flap. The left uterine artery was then skeletonized and desiccated and transected just above the level of the FROY ring. Attention was turned to the right pelvis. The right fallopian tube was removed by sequentially dividing the mesosalpinx towards the uterus sparing the ovary. The utero-ovarian ligament was desiccated and transected, as was the round ligament. The posterior peritoneal leaf was taken down to the FROY ring. The anterior leaf was developed as well as the start of the bladder flap. The right uterine artery was then skeletonized and desiccated and transected just above the level of the FROY ring. The bladder was then further dissected inferiorly over the level of the FROY ring. A circumferential colpotomy was made using monopolar current. The uterus, cervix, bilateral tubes were then delivered transvaginally. I then placed a single figure of eight suture of 0-vicryl in the left corner of the vaginal cuff. I then re-approximated the colpotomy with a running #1 PDO Quill suture in 2 layers. Following this dissection, the abdomen and pelvis were copiously irrigated and all surgical sites found to be hemostatic. Skin sites were reapproximated with 4-0 Vicryl in a subcuticular fashion. Steri-Strips were pl
[2023-11-07] MEDS: fentaNYL CITRATE INJ (*CRX) 100 MCG/2 ML VIAL 25 MCG IV PUSH ×7 (10:49→11:57)
--- NOTE | 2023-11-07 12:44 | ADMGEN ---
This patient, Betina Langford, was admitted to Medical Room 347-. Patient/family oriented to hospital policies and general routines including ID bracelet, bed and alarms, visiting hours, pain management, procedures, bathroom and other care routines, personal items, smoking policy, room service/diet, and visiting hours. Information on how to activate the Rapid Response Team has been discussed. Patient/Family are encouraged to report perceived risks to care and to ask questions if they do not understand what they are told or what they should do.
[2023-11-07] MEDS: HYDROcodone/acetaminophen (*CRX) 5-325 MG TABLET 1 TAB PO ×2 (13:42→17:54)
[2023-11-07] MEDS: SIMETHICONE 80 MG TAB.CHEW PO ×2 (13:43→17:54)
[2023-11-07] MEDS: SENNA/DOCUSATE SODIUM TABLET 2 TAB PO (20:47)
[2023-11-07] MEDS: KETOROLAC 30 MG/ML VIAL (*BKC) IV PUSH (20:47)
[2023-11-08] MEDS: HYDROcodone/acetaminophen (*CRX) 5-325 MG TABLET 1 TAB PO ×3 (00:59→08:12)
[2023-11-08 05:45] LABS: Basophils Percent Auto 0.3 % (0.2-1.2); Eosinophils Absolute Auto 0.1 K/mm3 (0-0.3); Eosinophils Percent Auto 0.8 % (0-4.4); Hematocrit 30.4 % (37.0-47.0); Hemoglobin 9.8 g/dL (12.0-15.0); Immature Granulocyte Absolute 0.05 K/mm3 (0.00-0.031); Immature Granulocyte Percent A 0.4 % (0-0.5); Lymphocytes Absolute Auto 1.68 K/mm3 (0.9-3.2); Lymphocytes Percent Auto 14.1 % (18.3-44.2); Mean Corpuscular HGB Conc 32.2 g/dl (32-36); Mean Corpuscular Hemoglobin 27.3 pg (26-34); Mean Corpuscular Volume 84.7 fl (80-100); Mean Platelet Volume 11.4 fl (7.4-10.4); Monocytes Absolute Auto 0.8 K/mm3 (0.1-0.6); Monocytes Percent Auto 6.3 % (2.6-8.5); Neutrophils Absolute Auto 9.3 K/mm3 (1.3-6.7); Neutrophils Percent Auto 78.1 % (45.5-73.1); Platelet Count Result 251 k/mm3 (150-375); Red Blood Count 3.59 M/mm3 (4.2-5.4); Red Cell Distribution Width 14.1 % (11.5-14.5); White Blood Count 11.9 K/mm3 (4.5-10.0)
[2023-11-08 05:55] LABS: Anion Gap 11 mmol/L (4-12); Blood Urea Nitrogen 10 mg/dL (7-17); Calcium 8.7 mg/dL (8.4-10.2); Carbon Dioxide 26 mmol/L (22-30); Chloride 102 mmol/L (98-107); Estimated CRCL calculation 133 ml/min; Estimated Glomerular Filt Rate > 60; Glucose 114 mg/dL (65-110); Potassium 3.6 mmol/L (3.4-5.0); Sodium 139 mmol/L (137-145)
[2023-11-08 06:00] VITALS: BP 116/69; PULSE 91; RESP 18; TEMP 35.9; O2SAT 97
[2023-11-08] MEDS: buPROPion HCL SR (12 HR) 150 MG TAB PO (08:11)
[2023-11-08] MEDS: SIMETHICONE 80 MG TAB.CHEW PO (08:11)
[2023-11-08] MEDS: DULoxetine HCL 60 MG CAPSULE.DR PO (08:12)
--- NOTE | 2023-11-08 08:25 | PM.DS ---
DS: Admitting Diagnosis Discharge Date 11/08/23 Admitting Diagnosis abnormal uterine bleeding pelvic pain stress urinary incontinence DS: Discharge Diagnosis Discharge Diagnosis (1) RATNA (stress urinary incontinence, female): Code(s): N39.3 - Stress incontinence (female) (male) Status: Acute (2) Abnormal uterine bleeding (AUB): Code(s): N93.9 - Abnormal uterine and vaginal bleeding, unspecified Status: Acute (3) Pelvic pain: Code(s): R10.2 - Pelvic and perineal pain Status: Acute DS: Summary Hospital Course Hospital Course: Betina Langford was admitted after robotic assisted total laparoscopic hysterectomy and bilateral salpingectomy and mid urethral sling. The above procedure was performed with no complications. She is doing well post op. She states her pain is well controlled with PO medications. She reports minimal bleeding. She is ambulating up to the chair. Her jaimes catheter was removed. She is tolerating PO without N/V. She reports passing flatus. Status at Discharge Overall status at discharge: patient is progressing back to baseline Time Spent with Patient Time attestation: Total time spent providing and/or coordinating discharge services: Time spent: Less than 30 minutes Exam Const: General: comfortable and no acute distress Limitations: no limitations Resp: Effort & Inspection: normal respiratory effort Auscultation: clear to auscultation bilaterally Cardio: Rate: regular rate Rhythm: regular rhythm GI: Inspection: non-distended GI Palp: Yes Soft to palpation, Yes Tenderness to palpation present (GI) (milder tenderness to deep palpation) and No Guarding due to palpation present (GI) Auscultation: normal bowel sounds Other: incisions C/D/I covered with dermabond Urinary Catheter: Urinary Catheter: urine clear Skin: General skin exam: normal color Extrem: General: normal to inspection Psych: Mental Status: mental status grossly normal Affect: normal affect DS: Data Data Completed and Pending Pending studies at discharge: Pending at discharge 11/07/23 09:18 Surgical [PTH] Routine Labs on day of discharge: Labs from last 24 hours 11/08/23 05:29 WBC 11.9 H RBC 3.59 L Hgb 9.8 L Hct 30.4 L MCV 84.7 MCH 27.3 MCHC 32.2 RDW 14.1 Plt Count 251 MPV 11.4 H Immature Gran % (Auto) 0.4 Neut % (Auto) 78.1 H Lymph % (Auto) 14.1 L [place] % (Auto) 6.3 Eos % (Auto) 0.8 Baso % (Auto) 0.3 Lymph # (Auto) 1.68 [place] # (Auto) 0.8 H Eos # (Auto) 0.1 Baso # (Auto) 0.0 Abs Immat Gran (auto) 0.05 H Absolute Neuts (auto) 9.3 H Absolute Nucleated RBC 0.000 Nucleated RBC % 0.0 Sodium 139 Potassium 3.6 Chloride 102 Carbon Dioxide 26 Anion Gap 11 BUN 10 Creatinine 0.70 Estim Creat Clear Calc 133 Estimated GFR > 60 Glucose 114 H Calcium 8.7 Discharge Plan Discharge Patient Disposition: Home, Self-Care Patient Instructions: Laparoscopic Hysterectomy (DC) Stand Alone Forms: General Discharge Instructions Follow-up/Referrals: Temo Bang MD [Physician] - 2 Weeks Discharge Medications: New oxycodone-acetaminophen 5-325 mg tablet 1 tablet PO Q6H PRN (Reason: pain) Qty: 28 0RF ibuprofen 600 mg tablet 600 mg PO Q6H PRN (Reason: pain) Qty: 30 0RF Continued [id number] [Fioricet] 50-300-40 mg capsule 1 cap PO Q6H PRN (Reason: pain) Qty: 30 0RF celecoxib 200 mg capsule 200 mg PO BID methocarbamol 750 mg tablet 750 mg PO BID gabapentin 300 mg capsule 300 mg PO BID ergocalciferol (vitamin D2) 1,250 mcg (50,000 unit) capsule 1,250 mcg PO WEEKLY Patient Comments: will start after finishing Vitamin D3 gummies fluticasone propion-salmeterol [Wixela Inhub] 250-50 mcg/dose blister with device See Rx Instructions .ROUTE .COMPLEX PRN (Reason: Wheezing) Rx Instructions: INHALE 1 PUFF TWICE A DAY triamcinolone acetonide 0.1
== END 2023-11-08 09:45 | disposition home or self-care (01) ==
LOC: ANHSURGERY 05:49 → ANH3MED 13:26
PROVIDERS: PCP Nurse Practitioner; Visit Provider Student in an Organized Health Care Education/Training Program
PROC: (CPT 57288; principal; 2023-11-07 07:30)
PROC: 0TSD0ZZ Reposition Urethra, Open Approach (ICD-10-PCS; CPT 57288; 2023-11-07 07:30)
DX: N93.9 Abnormal uterine and vaginal bleeding, unspecified (principal); N39.3 Stress incontinence (female) (male); N73.6 Female pelvic peritoneal adhesions (postinfective); F90.9 Attention-deficit hyperactivity disorder, unspecified type; F41.9 Anxiety disorder, unspecified; F32.A Depression, unspecified; E66.01 Morbid (severe) obesity due to excess calories; Z68.41 Body mass index [BMI] 40.0-44.9, adult; F12.90 Cannabis use, unspecified, uncomplicated
CPT/HCPCS: 57288; 58571; S2900; 36415; 80048; 85025; 88307; 88342; A9270; C1771; J0690; J1170; J1580; J1885; J2250; J3010; J7030; J7120; Q9968

== ENCOUNTER 2024-05-27 07:35 | Outpatient (CLI) | payer BC, OTHER, SELFPAY ==
--- NOTE | ~2024-05-27 | MR_ITS ---
EXAMINATION: MR lumbar spine wo con DATE: 05/27/2024 08:19 INDICATION: Lumbago. TECHNIQUE: Magnetic resonance imaging (MRI) of the lumbar spine was performed without intravenous con trast. Sequences included sagittal T2-weighted FSE, sagittal T2-weighted FS FSE, sagittal T1-weighted FSE, and axial T2-weighted FSE. COMPARISON: None FINDINGS: There is 5 degrees levocurvature of lumbar spine. There are Schmorl's nodes at most levels. There is mildly decreased disc height at L4-L5. The distal spinal cord signal intensity is normal. T he conus medullaris is at T12. The following disc levels are specifically discussed: L1-L2: The disc does not extend beyond the endplate margin. There is mild bilateral facet joint osteo arthritis. There is no neural foraminal stenosis. There is no central canal stenosis. L2-L3: The disc is mildly bulging. There is mild bilateral facet joint osteoarthritis. There is mild bilateral neural foraminal stenosis. There is mild central canal stenosis. L3-L4: There is a central extrusion. There is mild bilateral facet joint osteoarthritis. There is mil d bilateral neural foraminal stenosis. There is mild central canal stenosis. L4-L5: The disc is bulging with superimposed left central extrusion with 13 mm inferior extension and mass effect on left L5 and S1 nerve roots in left lateral recess. There is mild bilateral facet join t osteoarthritis. There is mild bilateral neural foraminal stenosis. There is mild central canal sten osis. There is severe stenosis of left lateral recess. L5-S1: The disc is bulging and has an annular fissure. There is moderate bilateral facet joint osteoa rthritis. There is mild bilateral neural foraminal stenosis. There is mild central canal stenosis. IMPRESSION: 1. 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 2. Mild spondylosis at other levels. Reviewed, dictated and finalized at location [] [place] [employer]
== END 2024-05-27 07:36 | disposition home or self-care (01) ==
PROVIDERS: PCP Nurse Practitioner; Visit Provider Nurse Practitioner Family
DX: M51.26 Other intervertebral disc displacement, lumbar region (principal); M47.816 Spondylosis without myelopathy or radiculopathy, lumbar region
CPT/HCPCS: 72148